=== PATIENT | female | born 1990 | race Caucasian/White ===

== ENCOUNTER 2016-10-25 16:26 | Emergency (ER) | payer MEDICAID ==
[2016-10-25 16:42] VITALS: BP 117/74
--- NOTE | 2016-10-25 17:10 | EDM.PDOC ---
ED HPI GENERAL MEDICAL PROBLEM - General Chief Complaint: Respiratory Problem Stated Complaint: COUGH AND CONGESTION Time Seen by Provider: 10/25/16 16:45 Source of Information: Reports: Patient History Limitations: Reports: No limitations - History of Present Illness INITIAL COMMENTS - FREE TEXT/NARRATIVE: The patient presents with cough, congestion, runny nose, sore throat, left ear pain. She has some tightness in her chest. She has chills and feels feverish. 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 Head Pain Score (Numeric/FACES): 6 - Related Data Allergies Allergy/AdvReac Type Severity Reaction Status Date / Time No Known Allergies Allergy Verified 10/25/16 16:42 Home Meds: Home Meds Venlafaxine [Effexor XR] 150 mg PO BEDTIME 07/11/16 [History] Albuterol [IJD: Albuterol HFA] 2 puff .XX Q6HR PRN #8 gm 10/25/16 [Rx] Amoxicillin 1,000 mg PO BID #40 capsule 10/25/16 [Rx] Codeine/Promethazine [Phenergan with Codeine] 5 - 10 ml PO Q6HR PRN #300 ml 03/05 [Rx] Past Medical History - Past Surgical History HEENT Surgical History: Reports: Oral surgery, Tonsillectomy Female Surgical History: Reports: Tubal ligation Social & Family History - Tobacco Use Smoking Status *Q: Current Every Day Smoker Years of Tobacco use: 8 Packs/Tins Daily: 0.5 - Caffeine Use Caffeine Use: Reports: None - Recreational Drug Use Recreational Drug Use: No ED ROS GENERAL - Review of Systems Review Of Systems: See Below Constitutional: Reports: fever, chills HEENT: Reports: Other (Congestion and runny nose) Respiratory: Reports: Cough Cardiovascular: Reports: Chest pain (Tightness) Endocrine: Reports: no symptoms GI/Abdominal: Reports: No symptoms : Reports: no symptoms Musculoskeletal: Reports: no symptoms Skin: Reports: no symptoms Neurological: Reports: No Symptoms ED EXAM, GENERAL - Physical Exam Exam: See Below Exam Limited By: No limitations General Appearance: alert, no apparent distress Ears: normal external exam, normal canal, other (Moderate erythema and fluid to the left TM) Nose: normal inspection Throat/Mouth: Other (Mild erythema) Head: atraumatic, normocephalic Neck: normal inspection Respiratory/Chest: no respiratory distress, wheezing (Mild wheezing when taking a deep breath) Cardiovascular: regular rate, rhythm, no edema, no murmur GI/Abdominal: Soft, Non-Tender, No Organomegaly, No Mass Rectal (Female) Exam: Normal Exam Back Exam: normal inspection Extremities: normal inspection Course - Vital Signs Last Recorded V/S: Last Vital Signs Temp 98.5 F 10/25/16 16:40 Pulse 88 10/25/16 16:40 Resp 18 10/25/16 16:40 BP 117/74 10/25/16 16:40 Pulse Ox 97 10/25/16 16:40 - Orders/Labs/Meds Orders: Active Orders 24 hr Category Date Time Status CXR [Chest 2V] [CR] Stat Exams 10/25/16 16:49 Taken - Re-Assessments/Exams Free Text/Narrative Re-Assessment/Exam: 10/25/16 17:03 Her CXR looks good. She has a left otitis media and bronchitis. I will get her on amoxicillin and albuterol. Departure - Departure Time of Disposition: 17:10 Disposition: Home, Self-Care 01 Condition: good Clinical Impression: Bronchitis Otitis media Qualifiers: Otitis media type: serous Laterality: left Chronicity: acute Recurrence: not specified as recurrent Qualified Code(s): H65.02 - Acute serous otitis media, left ear - Discharge Information Prescriptions: Albuterol [IJD: Albuterol HFA] 2 puff .XX Q6HR PRN #8 gm PRN Reason: Shortness Of Breath Codeine/Promethazine [Phenergan with Codeine] 5 - 10 ml PO Q6HR PRN #300 ml PRN Reason: Cough Amoxicillin 1,000 mg PO BID #40 capsule Referrals: Roberta Ortiz, DIRECTOR DISTRIBUTION [Primary Care Provider] - 1 Week Forms: ED Department Discharge Additional Instructions: Take the medication as prescribed. Try to stop smoking. Please return if you are worse. 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 Please call [phone]. - My Orders Last 24 Hours: My Active Orders 10/25/16 16:49 CXR [Chest 2V] [CR] Stat - Assessment/Plan Last 24 Hours: My Active Orders 10/25/16 16:49 CXR [Chest 2V] [CR] Stat
--- NOTE | 2016-10-26 11:56 | CR ---
Chest: Two views of the chest were obtained. Comparison: No previous study. Heart size and mediastinum are normal. Slight linear density is seen within the right lung base in a vertical direction believed to be incidental. Lungs otherwise are clear. Bony structures appear within normal limits. Impression: 1. Incidental finding. Nothing acute is identified on two-view chest x-ray. Diagnostic code #2
== END 2016-10-25 17:26 | disposition home or self-care (01) ==
LOC: JD.ED 16:26
DX: J40 Bronchitis, not specified as acute or chronic (principal); H65.02 Acute serous otitis media, left ear; F17.210 Nicotine dependence, cigarettes, uncomplicated; Z98.890 Other specified postprocedural states
CPT/HCPCS: 71020; 71020-26; 99283

== ENCOUNTER 2017-01-17 20:21 | Emergency (ER) | payer MEDICAID ==
--- NOTE | 2017-01-17 20:26 | EDM.PDOC ---
ED HPI GENERAL MEDICAL PROBLEM - General Chief Complaint: Gastrointestinal Problem Stated Complaint: ABDOMINAL PAIN,NAUSE, DIZZINESS Time Seen by Provider: 01/17/17 20:26 - History of Present Illness INITIAL COMMENTS - FREE TEXT/NARRATIVE: 26-year-old female presents emergency room with abdominal pain. Patient has had worsening abdominal pain over the last couple of days. This is been mostly in the lower quadrants. This associated with some nausea she's had some constipation yesterday but then this was followed up with a few watery stools. She has not had a BM today. She's had intermittent nausea no vomiting. She denies fevers or chills. Recently she was diagnosed with kidney stones but this is much different. - Related Data Allergies Allergy/AdvReac Type Severity Reaction Status Date / Time No Known Allergies Allergy Verified 01/17/17 20:31 Home Meds: Home Meds Venlafaxine [Effexor XR] 150 mg PO BEDTIME 07/11/16 [History] Cyclobenzaprine [Flexeril] 5 mg PO DAILY 01/17/17 [History] Diclofenac Sodium [Voltaren] 50 mg PO DAILY 01/17/17 [History] Hydrocodone/Acetaminophen [[place] 5-325] 1 - 2 tab PO Q6H PRN #5 tablet #5 Samples 01/18/17 [Rx] Magnesium Citrate 590 ml PO Q6H #2 solution #2 Samples 01/18/17 [Rx] Past Medical History - Past Surgical History HEENT Surgical History: Reports: Oral Surgery, Tonsillectomy Female Surgical History: Reports: Tubal Ligation Social & Family History - Tobacco Use Smoking Status *Q: Current Every Day Smoker Years of Tobacco use: 8 Packs/Tins Daily: 0.5 - Caffeine Use Caffeine Use: Reports: None - Recreational Drug Use Recreational Drug Use: No ED ROS GENERAL - Review of Systems Review Of Systems: See Below Constitutional: Denies: Fever, Chills HEENT: Reports: No Symptoms Respiratory: Reports: No Symptoms Cardiovascular: Reports: No Symptoms GI/Abdominal: Reports: Abdominal Pain, Constipation, Diarrhea, Nausea : Reports: No Symptoms ED EXAM, GI/ABD - Physical Exam Exam: See Below Exam Limited By: No Limitations General Appearance: Alert, No Apparent Distress Head: Atraumatic, Normocephalic Neck: Normal Inspection, Supple, Non-Tender, Full Range of Motion. No: Lymphadenopathy (L), Lymphadenopathy (R) Respiratory/Chest: No Respiratory Distress, Lungs Clear, Normal Breath Sounds Cardiovascular: Regular Rate, Rhythm, No Edema, No Murmur GI/Abdominal Exam: Normal Bowel Sounds, Soft, Other (She has some bilateral lower quadrant discomfort no rebound or guarding appreciated no rigidity or distention) Back Exam: Normal Inspection. No: CVA Tenderness (L), CVA Tenderness (R) Course - Vital Signs Last Recorded V/S: Last Vital Signs Temp 36.9 C 01/17/17 20:26 Pulse 98 01/17/17 20:26 Resp 18 01/17/17 20:26 BP 124/85 01/17/17 20:26 Pulse Ox 99 01/17/17 20:26 Orthostatic Blood Pressure [ 108/73 Standing] Orthostatic Blood Pressure [ 108/61 Supine] - Orders/Labs/Meds Orders: Active Orders 24 hr Category Date Time Status Abdomen 2V AP Flat Upright [CR] Stat Exams 01/17/17 23:06 Taken Chest 2V [CR] Stat Exams 01/17/17 20:43 Taken Lactated Ringers [Ringers, Lactated] 1,000 ml Med 01/17/17 21:11 Active IV ONETIME Medication Orders Lactated Ringer's (Ringers, Lactated) 1,000 mls @ 150 mls/hr IV ONETIME ONE Stop: 01/18/17 03:50 Last Admin: 01/17/17 21:24 Dose: 150 mls/hr Labs: Laboratory Tests 01/17/17 01/17/17 01/17/17 Range/Units 21:04 21:04 21:08 WBC 11.85 H (3.98-10.04) K/mm3 RBC 4.62 (3.98-5.22) M/mm3 Hgb 14.0 (11.2-15.7) gm/L Hct 39.7 (34.1-44.9) % MCV 85.9 (79.4-94.8) fl MCH 30.3 (25.6-32.2) pg MCHC 35.3 (32.2-35.5) g/dl RDW Std Deviation 37.7 (36.4-46.3) fL Plt Count 272 (182-369) K/mm3 MPV 9.4 (9.4-12.3) fl Neutrophils % (Manual) 56 (40-60) % Band Neutrophils % 0 (0-10) % Lymphocytes % (Manual) 42 H (20-40) % Atypical Lymphs % 0 % Monocytes % (Manual) 0 L (2-10) % Eosinophils % (Manual) 2 (0.7-5.8) % Basophils % (Manual) 0 L (0.1-1.2) Platelet Estimate Adequate Plt Morphology Comment Normal RBC Morph Comment Normal Sodium 139 (136-145) mEq/L Potassium 3.7 (3.5-5.1) mEq/L Chloride 105 (98-107) mEq/L Carbon Dioxide 23 (21-32) mEq/L Anion Gap 14.7 (5-15) BUN 13 (7-18) mg/dL Creatinine 1.0 (0.55-1.02) mg/dL Est Cr Clr Drug Dosing TNP Estimated GFR (MDRD) > 60 (>60) mL/min BUN/Creatinine Ratio 13.0 L (14-18) Glucose 109 H (74-106) mg/dL Calcium 9.4 (8.5-10.1) mg/dL Total Bilirubin 0.2 (0.2-1.0) mg/dL AST 21 (15-37) U/L ALT 37 (14-59) U/L Alkaline Phosphatase 87 (46-116) U/L Total Protein 7.3 (6.4-8.2) g/dl Albumin 4.0 (3.4-5.0) g/dl Globulin 3.3 gm/dL Albumin/Globulin Ratio 1.2 (1-2) Urine Color Light yellow (Yellow) Urine Appearance Cloudy H (Clear) Urine pH 7.0 (5.0-8.0) Ur Specific [place] 1.025 (1.005-1.030) Urine Protein 1+ H (Negative) Urine Glucose (UA) Negative (Negative) Urine Ketones Negative (Negative) Urine Occult Blood 3+ H (Negative) Urine Nitrite Negative (Negative) Urine Bilirubin Negative (Negative) Urine Urobilinogen 0.2 (0.2-1.0) Ur Leukocyte Esterase Trace H (Negative) Urine RBC 40-50 H (0-5) /hpf Urine WBC 5-10 H (0-5) /hpf Ur Epithelial Cells 10-20 H (0-5) /hpf Amorphous Sediment Moderate H (NOT SEEN) /hpf Urine Bacteria Moderate H (FEW) /hpf Urine Mucus Not seen (FEW) /hpf Meds: Medications Generic Name Dose Route Start Last Admin Trade Name Dwayne PRN Reason Stop Dose Admin Lactated Ringer's 1,000 mls @ 150 mls/hr 01/17/17 21:11 01/17/17 21:24 Ringers, Lactated IV 01/18/17 03:50 150 mls/hr ONETIME ONE Administration Discontinued Medications Generic Name Dose Route Start Last Admin Trade Name Dwayne PRN Reason Stop Dose Admin Hydromorphone HCl 0.5 mg 01/17/17 21:12 01/17/17 21:25 Dilaudid IVPUSH 01/17/17 21:13 0.5 mg ONETIME ONE Administration Hydromorphone HCl 0.5 mg 01/17/17 23:07 01/17/17 23:18 Dilaudid IVPUSH 01/17/17 23:08 0.5 mg ONETIME ONE Administration Ondansetron HCl 4 mg 01/17/17 21:12 01/17/17 21:26 Zofran IVPUSH 01/17/17 21:13 4 mg ONETIME ONE Administration - Re-Assessments/Exams Free Text/Narrative Re-Assessment/Exam: 01/18/17 00:28 Patient is doing better she's received fluids abdominal x-ray shows a fair amount of stool not necessarily overloaded. Chest x-ray unremarkable labs unrevealing she does have some blood in her urine about a month ago she did pass a kidney stone but this pain is much different than what she is experiencing now. The patient had a CAT scan done about a month ago at the [facility]. Kidney stone diagnosed at that time. We discussed getting a CAT scan and she would like to hold off on that and is willing to try some mag citrate. I cannot exclude a kidney stone at this point but did be somewhat unusual with her presentation. She has bilateral lower quadrant discomfort and crampy pain. Departure - Departure Time of Disposition: 00:39 Disposition: Home, Self-Care 01 Clinical Impression: Abdominal pain of unknown cause - Discharge Information Prescriptions: Magnesium Citrate 590 ml PO Q6H #2 solution #2 Samples Instructions: Abdominal Pain, Adult Referrals: Miranda Pacheco [Primary Care Provider] - Forms: ED Department Discharge Additional Instructions: Return to the emergency room with a questions problems or worsening symptoms. Return to emergency room if not better in 12 hours sooner if getting worse. Limit your diet to clear liquids for the next 12 hours then slowly advance as tolerated. Follow-up with your regular physician next week to recheck your urine for the presence of blood. You been discharged with magnesium citrate this is for constipation try this it may help. Drink 1 bottle when he gets home it goes down better if you poor it over ice, or refrigerate for a while. You been given hydrocodone 10/19/24 take one or 2 every 6 hours as needed for discomfort. Your given 5 from the emergency room stock. - My Orders Last 24 Hours: My Active Orders 01/17/17 20:43 Chest 2V [CR] Stat 01/17/17 21:11 Lactated Ringers [Ringers, Lactated] 1,000 ml IV ONETIME 01/17/17 23:06 Abdomen 2V AP Flat Upright [CR] Stat - Assessment/Plan Last 24 Hours: My Active Orders 01/17/17 20:43 Chest 2V [CR] Stat 01/17/17 21:11 Lactated Ringers [Ringers, Lactated] 1,000 ml IV ONETIME 01/17/17 23:06 Abdomen 2V AP Flat Upright [CR] Stat
[2017-01-17 20:31] VITALS: BP 124/85
[2017-01-17] MEDS ORDERED: Lactated Ringers 1,000 ML IV ONE (21:11)
[2017-01-17] MEDS ORDERED: HYDROmorphone 0.5 MG/0.5 ML Syringe IVPUSH ONE ×2 (21:12→23:07)
[2017-01-17] MEDS ORDERED: Ondansetron 4 MG/2 ML SDV IVPUSH ONE (21:12)
[2017-01-17] MEDS ORDERED: Acetaminophen/HYDROcodone 325-5 MG Tab ONE (23:58)
[2017-01-18] MEDS ORDERED: Magnesium Citrate Solution 296 ML Bottle ONE (00:53)
--- NOTE | 2017-01-18 07:11 | CR ---
Chest: Two views of the chest were obtained. Comparison: Previous chest x-ray of 10/25/16. Heart size and mediastinum are normal. Lungs are clear. Bony structures are unremarkable for the patient's age. Impression: 1. Nothing acute is identified on two-view chest x-ray. Diagnostic code #1
--- NOTE | 2017-01-18 07:15 | CR ---
Abdomen: Supine and upright views of the abdomen were obtained. Calcification identified overlying the mid left kidney believed to represent nonobstructing stone within the left renal pelvis measuring approximately 1 cm. No other abnormal calcifications are appreciated. Bowel gas pattern is normal. No free air is seen. Bony structures are unremarkable. Impression: 1. Calcification overlying the mid left kidney likely representing a nonobstructing calculus within the renal pelvis. 2. No additional abnormality is identified on two-view abdominal x-ray. Diagnostic code #3
== END 2017-01-18 00:59 | disposition home or self-care (01) ==
LOC: JD.ED 20:21
DX: R10.31 Right lower quadrant pain (principal); R10.32 Left lower quadrant pain; F17.210 Nicotine dependence, cigarettes, uncomplicated; Z98.890 Other specified postprocedural states
CPT/HCPCS: 36415; 71020; 74020; 80053; 81001; 85025; 96361; 96374; 96375; 96376; 99284; A9270; J1170; J2405; J7120

== ENCOUNTER 2017-03-25 17:50 | Emergency (ER) | payer MEDICAID ==
[2017-03-25] MEDS ORDERED: Ondansetron 4 MG/2 ML SDV IVPUSH ONE ×2 (18:17→22:03)
[2017-03-25 18:22] VITALS: BP 140/114
[2017-03-25] MEDS ORDERED: Sodium Chloride 0.9% 1,000 ML IV ONE (18:34)
[2017-03-25] MEDS ORDERED: HYDROmorphone 1 MG/ML Syringe IVPUSH ONE (19:45)
--- NOTE | 2017-03-25 20:56 | EDM.PDOC ---
ED HPI GENERAL MEDICAL PROBLEM - General Chief Complaint: Genitourinary Problem Stated Complaint: POSS PASSING KIDNEY STONE Time Seen by Provider: 03/25/17 19:35 Source of Information: Reports: Patient, Old Records (recent ER records) History Limitations: Reports: No Limitations - History of Present Illness INITIAL COMMENTS - FREE TEXT/NARRATIVE: 26-year-old female presents for evaluation and treatment of left sided flank pain. Reports pain stated about 2 months ago. She was seen in the ER on 01-17-17 for abdominal pain. Reports she followed up with her PCP and had a CT scan done on 02-01-17. She was found to have 6.9mm nonobstructing stone in the left pole of the kidney. She was sent to urology in [place] where no further intervention was done. Patient reports today the pain has significantly worsened. Reports associated nausea and lightheadedness. No vomiting or syncope. No dysuria. Has been taking zofran and a muscle relaxer with no symptom relief. Patient reports she has had a tubal ligation about 4 years ago. States she is currently on her menstrual cycle. Denies any previous abdominal surgeries. 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: - Past Surgical History HEENT Surgical History: Reports: Oral Surgery, Tonsillectomy Female Surgical History: Reports: Tubal Ligation Social & Family History - Family History Family Medical History: Noncontributory - Tobacco Use Smoking Status *Q: Current Every Day Smoker Years of Tobacco use: 10 Packs/Tins Daily: 0.5 Used Tobacco, but Quit: No Second Hand Smoke Exposure: No - Caffeine Use Caffeine Use: Reports: Coffee, Energy Drinks, Soda - Recreational Drug Use Recreational Drug Use: No ED ROS GENERAL - Review of Systems Review Of Systems: See Below Constitutional: Denies: Fever Cardiovascular: Reports: Lightheadedness GI/Abdominal: Reports: Nausea. Denies: Abdominal Pain, Vomiting : Reports: Flank Pain (left), Other (currently on menstrual cycle) Neurological: Denies: Syncope ED EXAM, RENAL/ - Physical Exam Exam: See Below Exam Limited By: No Limitations General Appearance: Alert, WD/WN, No Apparent Distress Throat/Mouth: Normal Inspection, Normal Lips, Normal Voice, No Airway Compromise Respiratory/Chest: No Respiratory Distress, Lungs Clear, Normal Breath Sounds Cardiovascular: Normal Peripheral Pulses, Regular Rate, Rhythm, No Murmur GI/Abdominal: Soft, Non-Tender Back Exam: Normal Inspection. No: CVA Tenderness (L), CVA Tenderness (R) Neurological: Alert, Oriented, Normal Cognition Psychiatric: Normal Affect, Normal Mood Skin Exam: Warm, Dry, Normal Color Course - Vital Signs Last Recorded V/S: Last Vital Signs Temp 37.1 C 03/25/17 18:18 Pulse 76 03/25/17 18:18 Resp 20 03/25/17 18:18 BP 140/114 H 03/25/17 18:18 Pulse Ox 99 03/25/17 18:18 - Orders/Labs/Meds Labs: Laboratory Tests 03/25/17 03/25/17 03/25/17 Range/Units 18:10 20:34 20:34 WBC 10.45 H (3.98-10.04) K/mm3 RBC 4.46 (3.98-5.22) M/mm3 Hgb 13.6 (11.2-15.7) gm/L Hct 39.0 (34.1-44.9) % MCV 87.4 (79.4-94.8) fl MCH 30.5 (25.6-32.2) pg MCHC 34.9 (32.2-35.5) g/dl RDW Std Deviation 38.8 (36.4-46.3) fL Plt Count 287 (182-369) K/mm3 MPV 9.3 L (9.4-12.3) fl Neut % (Auto) 75.4 H (34.0-71.1) % Lymph % (Auto) 18.4 L (19.3-51.7) % [place] % (Auto) 4.8 (4.7-12.5) % Eos % (Auto) 1.0 (0.7-5.8) Baso % (Auto) 0.2 (0.1-1.2) % Neut # (Auto) 7.89 H (1.56-6.13) K/mm3 Lymph # (Auto) 1.92 (1.18-3.74) K/mm3 [place] # (Auto) 0.50 H (0.24-0.36) K/mm3 Eos # (Auto) 0.10 (0.04-0.36) K/mm3 Baso # (Auto) 0.02 (0.01-0.08) K/mm3 Sodium 142 (136-145) mEq/L Potassium 3.7 (3.5-5.1) mEq/L Chloride 108 H (98-107) mEq/L Carbon Dioxide 22 (21-32) mEq/L Anion Gap 15.7 H (5-15) BUN 12 (7-18) mg/dL Creatinine 1.1 H (0.55-1.02) mg/dL Est Cr Clr Drug Dosing 64.67 mL/min Estimated GFR (MDRD) > 60 (>60) mL/min BUN/Creatinine Ratio 10.9 L (14-18) Glucose 131 H (74-106) mg/dL Calcium 9.3 (8.5-10.1) mg/dL Total Bilirubin 0.3 (0.2-1.0) mg/dL AST 18 (15-37) U/L ALT 34 (14-59) U/L Alkaline Phosphatase 85 (46-116) U/L C-Reactive Protein 0.7 (<1.0) mg/dL Total Protein 7.4 (6.4-8.2) g/dl Albumin 4.0 (3.4-5.0) g/dl Globulin 3.4 gm/dL Albumin/Globulin Ratio 1.2 (1-2) Urine Color Light pink (Yellow) Urine Appearance Cloudy H (Clear) Urine pH 7.5 (5.0-8.0) Ur Specific [place] 1.025 (1.005-1.030) Urine Protein 3+ H (Negative) Urine Glucose (UA) Negative (Negative) Urine Ketones Trace H (Negative) Urine Occult Blood 3+ H (Negative) Urine Nitrite Negative (Negative) Urine Bilirubin Negative (Negative) Urine Urobilinogen 1.0 (0.2-1.0) Ur Leukocyte Esterase Negative (Negative) Urine RBC >100 H (0-5) /hpf Urine WBC 0-5 (0-5) /hpf Ur Epithelial Cells 5-10 H (0-5) /hpf Urine Bacteria Moderate H (FEW) /hpf Urine Mucus Few (FEW) /hpf Meds: Medications Discontinued Medications Generic Name Dose Route Start Last Admin Trade Name Dwayne PRN Reason Stop Dose Admin Hydromorphone HCl 1 mg 03/25/17 19:45 03/25/17 20:06 Dilaudid IVPUSH 03/25/17 19:46 1 mg ONETIME ONE Administration Sodium Chloride 1,000 mls @ 150 mls/hr 03/25/17 18:34 03/25/17 19:00 Normal Saline IV 03/26/17 01:13 150 mls/hr ONETIME ONE Administration Ketorolac Tromethamine 30 mg 03/25/17 22:03 03/25/17 22:12 Toradol IVPUSH 03/25/17 22:04 30 mg ONETIME ONE Administration Ondansetron HCl 4 mg 03/25/17 18:17 03/25/17 18:26 Zofran IVPUSH 03/25/17 18:18 4 mg ONETIME ONE Administration Ondansetron HCl 4 mg 03/25/17 22:03 03/25/17 22:10 Zofran IVPUSH 03/25/17 22:04 4 mg ONETIME ONE Administration - Radiology Interpretation Free Text/Narrative:: KUB shows a kidney stone in the left kidney, no apparent movement at this time. - Re-Assessments/Exams Free Text/Narrative Re-Assessment/Exam: 03/25/17 19:50 Unfortunately the patient is on her menstrual cycle so blood on UA will likely be present. Given she recently had a CT we will instead obtain a KUB to see if the stone is moving at this time. 03/25/17 22:03 KUB shows a stone in the left kidney. Does not appear to be moving at this time. 03/25/17 22:04 I reviewed the absent x-ray with the patient. She is reporting worsening pain and nausea. Ordered Toradol as the combination with Dilaudid can often help with renal colic. I will also give her some more Zofran for nause. Will discharge home at this time. Discharge instructions as documented. 03/25/17 22:25 Patient's sister reports that she has had allergies to hydrocodone and oxycodone the past. We'll prescribe her tramadol for discomfort and Zofran for nausea. Departure - Departure Time of Disposition: 22:22 Disposition: Home, Self-Care 01 Condition: Fair Clinical Impression: Abdominal pain of unknown cause - Discharge Information Instructions: Abdominal Pain, Adult, [id number] Referrals: Miranda Pacheco [Primary Care Provider] - Forms: ED Department Discharge Additional Instructions: Prescription for tramadol 1 tablet every 4-6 hours as needed for pain #30 Prescription for Zofran 1 tablet every 8 hours as needed for nausea #5 given through [facility]eds. Follow-up with your primary care provider for recheck of your symptoms this week. [id number] Tylenol or Motrin as needed for pain relief. For pain severe pain not relieved by Tylenol or Motrin, recommend tramadol 1 tab every 4-[address] machinery within 12 hours of taking tramadol. Tramadol can be habit-forming, I recommend you take as few these as needed to control your pain. Zofran 1 tab sublingual every 8 hours needed for nausea. Please return to the ER if your symptoms change or worsen.
[2017-03-25] MEDS ORDERED: Ketorolac 30 MG/ML SDV IVPUSH ONE (22:03)
--- NOTE | 2017-03-27 10:25 | CR ---
Abdomen: Supine view of the abdomen was obtained. Comparison: Previous abdominal x-ray of 01/17/17. Findings: Nonobstructing calculus is again seen within the mid to lower left kidney. This nonobstructing calculus is stable from prior study. No other abnormal calcifications are seen. Bowel gas pattern appears within normal limits. Bony structures appear within normal limits. Impression: 1. Stable nonobstructing stone within the mid to lower left kidney. 2. Supine abdominal x-ray is otherwise unremarkable. Diagnostic code #2
== END 2017-03-25 22:46 | disposition home or self-care (01) ==
LOC: JD.ED 17:50
DX: R10.9 Unspecified abdominal pain (principal); F17.210 Nicotine dependence, cigarettes, uncomplicated; Z79.899 Other long term (current) drug therapy
CPT/HCPCS: 36415; 74000; 80053; 81001; 85025; 86140; 87086; 96361; 96374; 96375; 96376; 99284; J1170; J1885; J2405; J7040

== ENCOUNTER 2017-06-28 06:30 | Emergency (ER) | payer MEDICAID ==
--- NOTE | 2017-06-28 07:18 | EDM.PDOC ---
ED HPI GENERAL MEDICAL PROBLEM - General Chief Complaint: Cardiovascular Problem Stated Complaint: CHEST PAIN/SOB Time Seen by Provider: 06/28/17 06:58 Source of Information: Reports: Patient, RN Notes Reviewed - History of Present Illness INITIAL COMMENTS - FREE TEXT/NARRATIVE: 26-year-old female comes in with palpitations, shortness of breath. This started about 2 hours ago now somewhat better. She states that she does have history of mitral prolapse. Been feeling more palpitations yesterday and then again early this morning, through the night. This became more severe as stated about 2 hours ago. That is when she became short of breath. Not feel that she was hyperventilating but she did get somewhat numb and tingly with her hands and feet. So very nonspecific dizziness. She's not been ill with cough congestion sore throat fever or chills. Now does feel somewhat better. She is no longer feeling the palpitations. She still does feel somewhat short of breath. 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: Musculoskeletal History: Reports: Other (See Below) Other Musculoskeletal History: Sciatica Psychiatric History: Reports: Anxiety, Depression, Eating Disorders - Past Surgical History HEENT Surgical History: Reports: Oral Surgery, Tonsillectomy Other HEENT Surgeries/Procedures: [place] teeth extraction Female Surgical History: Reports: Tubal Ligation Social & Family History - Family History Family Medical History: Noncontributory - Tobacco Use Smoking Status *Q: Current Every Day Smoker Years of Tobacco use: 10 Packs/Tins Daily: 0.5 Used Tobacco, but Quit: No Second Hand Smoke Exposure: No - Caffeine Use Caffeine Use: Reports: Coffee, Energy Drinks, Soda - Recreational Drug Use Recreational Drug Use: Yes Recreational Drug Type: Reports: Cocaine, Methamphetamine Recreational Drug Use Frequency: Not Used In Over 6 Months ED ROS GENERAL - Review of Systems Review Of Systems: See Below Constitutional: Denies: Fever, Chills, Diaphoresis HEENT: Denies: Rhinitis, Sinus Problem, Throat Pain, Vertigo Respiratory: Reports: Shortness of Breath. Denies: Wheezing, Pleuritic Chest Pain, Cough Cardiovascular: Reports: Lightheadedness, Palpitations. Denies: Chest Pain, Syncope GI/Abdominal: Denies: Abdominal Pain, Diarrhea, Nausea, Vomiting Musculoskeletal: Reports: No Symptoms Skin: Reports: No Symptoms Neurological: Reports: Numbness (Hands and feet) ED EXAM, GENERAL - Physical Exam Exam: See Below General Appearance: Alert, No Apparent Distress Eye Exam: Bilateral Eye: PERRL Throat/Mouth: Normal Inspection, Normal Oropharynx Head: Atraumatic. No: Facial Swelling Neck: Supple, Full Range of Motion Respiratory/Chest: No Respiratory Distress, Lungs Clear, Normal Breath Sounds Cardiovascular: Regular Rate, Rhythm GI/Abdominal: Soft, Non-Tender Extremities: Normal Inspection, Normal Range of Motion Neurological: Alert, Oriented, No Motor/Sensory Deficits Skin Exam: Warm, Dry, Normal Color EKG INTERPRETATION EKG Date: 06/28/17 Rhythm: NSR [place]: Normal P-Wave: Present QRS: Normal ST-T: Normal Course - Vital Signs Last Recorded V/S: Last Vital Signs Temp 96.4 F 06/28/17 06:37 Pulse 82 06/28/17 09:40 Resp 18 06/28/17 09:40 BP 120/61 06/28/17 09:40 Pulse Ox 100 06/28/17 09:40 - Orders/Labs/Meds Orders: Active Orders 24 hr Category Date Time Status EKG 12 Lead [EKG Documentation Completion] [RC] STAT Care 06/28/17 07:12 Active Labs: Laboratory Tests 06/28/17 06/28/17 Range/Units 06:41 06:41 WBC 11.24 H (3.98-10.04) K/mm3 RBC 4.76 (3.98-5.22) M/mm3 Hgb 14.5 (11.2-15.7) gm/L Hct 41.6 (34.1-44.9) % MCV 87.4 (79.4-94.8) fl MCH 30.5 (25.6-32.2) pg MCHC 34.9 (32.2-35.5) g/dl RDW Std Deviation 39.6 (36.4-46.3) fL Plt Count 291 (182-369) K/mm3 MPV 9.5 (9.4-12.3) fl Neut % (Auto) 60.5 (34.0-71.1) % Lymph % (Auto) 28.6 (19.3-51.7) % Heard % (Auto) 7.2 (4.7-12.5) % Eos % (Auto) 3.0 (0.7-5.8) Baso % (Auto) 0.5 (0.1-1.2) % Neut # (Auto) 6.79 H (1.56-6.13) K/mm3 Lymph # (Auto) 3.22 (1.18-3.74) K/mm3 Heard # (Auto) 0.81 H (0.24-0.36) K/mm3 Eos # (Auto) 0.34 (0.04-0.36) K/mm3 Baso # (Auto) 0.06 (0.01-0.08) K/mm3 Sodium 142 (136-145) mEq/L Potassium 4.1 (3.5-5.1) mEq/L Chloride 108 H (98-107) mEq/L Carbon Dioxide 22 (21-32) mEq/L Anion Gap 16.1 H (5-15) BUN 13 (7-18) mg/dL Creatinine 0.8 (0.55-1.02) mg/dL Est Cr Clr Drug Dosing 88.93 mL/min Estimated GFR (MDRD) > 60 (>60) mL/min BUN/Creatinine Ratio 16.3 (14-18) Glucose 117 H (74-106) mg/dL Calcium 9.0 (8.5-10.1) mg/dL Total Bilirubin 0.3 (0.2-1.0) mg/dL AST 15 (15-37) U/L ALT 22 (14-59) U/L Alkaline Phosphatase 83 (46-116) U/L Total Protein 7.2 (6.4-8.2) g/dl Albumin 3.8 (3.4-5.0) g/dl Globulin 3.4 gm/dL Albumin/Globulin Ratio 1.1 (1-2) - Re-Assessments/Exams Free Text/Narrative Re-Assessment/Exam: 06/28/17 09:31 Patient has been resting comfortably, labs are relatively okay, does show very mild dehydration. I suspect she was having some PVCs or PACs at home when this all started. Rate and rhythm has been completely normal here in the ED running around 80, no ectopy that I have seen or been made aware of. Chest x-ray looks good. Sats have been running good with no respiratory distress while here in the ED. Discharge instructions as documented Departure - Departure Time of Disposition: 09:33 Disposition: Home, Self-Care 01 Condition: Fair Clinical Impression: Palpitations Dyspnea Qualifiers: Dyspnea type: dyspnea on exertion Qualified Code(s): R06.09 - Other forms of dyspnea Instructions: Palpitations, [id number] Referrals: Miranda Pacheco [Primary Care Provider] - Forms: ED Department Discharge Additional Instructions: Rest, drink plenty of water to activity as tolerated, restart the labetalol if having further difficulty with palpitations, follow-up with your regular medical provider if symptoms not resolving as expected, return to ED if symptoms worsening in any way. - My Orders Last 24 Hours: My Active Orders 06/28/17 07:12 EKG 12 Lead [EKG Documentation Completion] [RC] STAT - Assessment/Plan Last 24 Hours: My Active Orders 06/28/17 07:12 EKG 12 Lead [EKG Documentation Completion] [RC] STAT
--- NOTE | 2017-06-28 09:13 | CR ---
Chest: Frontal view of the chest was obtained. Comparison: Prior chest x-ray of 01/17/17. Heart size and mediastinum are normal. Lungs are clear. Bony structures are grossly intact. Impression: 1. Nothing acute is identified on two-view chest x-ray. Diagnostic code #1
[2017-06-28 10:39] VITALS: BP 120/61
== END 2017-06-28 09:40 | disposition home or self-care (01) ==
LOC: JD.ED 06:30
DX: R00.2 Palpitations (principal); R06.09 Other forms of dyspnea; F17.210 Nicotine dependence, cigarettes, uncomplicated; Z79.899 Other long term (current) drug therapy
CPT/HCPCS: 36415; 71045; 71045-26; 80053; 85025; 93005; 93010; 99283-25; 99285-25

== ENCOUNTER 2017-08-13 15:54 | Emergency (ER) | payer MEDICAID ==
[2017-08-13 16:20] VITALS: BP 116/87
--- NOTE | 2017-08-13 17:17 | EDM.PDOC ---
ED HPI GENERAL MEDICAL PROBLEM - General Chief Complaint: Lower Extremity Injury/Pain Stated Complaint: FELL DOWN STAIRS AND INJURED L HIP/LEG Time Seen by Provider: 08/13/17 17:04 Source of Information: Reports: Patient History Limitations: Reports: No Limitations - History of Present Illness INITIAL COMMENTS - FREE TEXT/NARRATIVE: The patient states that she is moving, and was carrying some boxes down stairs, when she slipped and fell down about 5 stairs, around 14:45 this afternoon. She complains of generalized left sided body pain. She is not concerned that anything is broken. The patient is requesting a note for work. The patient's PCP is Dr. Pacheco. 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: Musculoskeletal History: Reports: Other (See Below) (Sciatica) Psychiatric History: Reports: Anxiety, Depression, Eating Disorders (Anorexia/ bulimia) Endocrine/Metabolic History: Reports: Obesity/BMI 30+ - Past Surgical History HEENT Surgical History: Reports: Oral Surgery ([place] teeth extraction), Tonsillectomy Female Surgical History: Reports: Tubal Ligation (2012), Other (See Below) ( Right kidney surgery) Social & Family History - Family History Family Medical History: Noncontributory - Tobacco Use Smoking Status *Q: Current Every Day Smoker Years of Tobacco use: 10 Packs/Tins Daily: 0.5 Packs/Tins Daily Comment: Down from 1 ppd - Caffeine Use Caffeine Use: Reports: Coffee, Tea - Alcohol Use Alcohol Use History: Yes Alcohol Use Frequency: Socially - Recreational Drug Use Recreational Drug Use: Yes Drug Use in Last 12 Months: Yes Recreational Drug Type: Reports: Cocaine, Methamphetamine Recreational Drug Use Frequency: Not Used In Over 6 Months - Living Situation & Occupation Living situation: Reports: (), with Family (2 kids) Occupation: Employed ([employer]) Review of Systems - Review of Systems Review Of Systems: ROS reveals no pertinent complaints other than HPI. ED EXAM, GENERAL - Physical Exam Exam: See Below Exam Limited By: No Limitations General Appearance: Alert, WD/WN, No Apparent Distress Eye Exam: Bilateral Eye: Normal Inspection Ears: Normal External Exam, Hearing Grossly Normal Nose: Normal Inspection, No Blood Throat/Mouth: Normal Inspection, Normal Lips, Normal Voice, No Airway Compromise Head: Atraumatic, Normocephalic Neck: Normal Inspection, Full Range of Motion Respiratory/Chest: No Respiratory Distress, Lungs Clear, Normal Breath Sounds, No Accessory Muscle Use Cardiovascular: Normal Peripheral Pulses, Regular Rate, Rhythm, No Gallop, No JVD, No Murmur, No Rub Peripheral Pulses: 4+: Radial (L), Radial (R) GI/Abdominal: Normal Bowel Sounds, Soft, Non-Tender, No Organomegaly, No Distention, No Abnormal Bruit, No Mass, Other (Obese) (Female) Exam: Deferred Rectal (Female) Exam: Deferred Back Exam: Normal Inspection, Full Range of Motion, NT Extremities: Normal Inspection (No visible abnormality, such as swelling, erythema, ecchymosis, or abrasion), Normal Range of Motion, No Pedal Edema, Normal Capillary Refill Neurological: Alert, Oriented, Normal Cognition, No Motor/Sensory Deficits Psychiatric: Normal Affect Skin Exam: Warm, Dry, Intact, Normal Color, No Rash Course - Vital Signs Last Recorded V/S: Last Vital Signs Temp 36.8 C 08/13/17 16:19 Pulse 66 08/13/17 16:19 Resp 20 08/13/17 16:19 BP 116/87 08/13/17 16:19 Pulse Ox 98 08/13/17 16:19 - Re-Assessments/Exams Free Text/Narrative Re-Assessment/Exam: 08/13/17 17:06 3-view radiographs of the left shoulder appear to be grossly normal. No bony injuries, such as fracture or dislocation, is identified. Formal read per the Radiologist pending. 2-view radiographs of the left hip appear to be grossly normal. No bony injuries , such as fracture or dislocation, is identified. Formal read per the Radiologist pending. 08/13/17 17:29 X-ray results discussed with the patient. No physical injury found. The patient may return to work. She requests a note. The patient is already prescribed diclofenac, tramadol, and [place] for joint pain. I'm recommending that she take the diclofenac as needed, and stay active. Departure - Departure Time of Disposition: 17:31 Disposition: Home, Self-Care 01 Condition: Good Clinical Impression: Fall at home - Discharge Information Instructions: Fall Prevention in the Home, [id number] Referrals: Miranda Pacheco [Primary Care Provider] - Forms: ED Department Discharge, ED Return to Work/School Form Additional Instructions: You were seen in the emergency room after slipping and falling on some stairs at home. Workup in the ER included x-rays of your left shoulder and left hip, which were normal. No broken bones or dislocations seen. We recommend that you continue to take your diclofenac as needed for discomfort , and remain active. Follow-up with your PCP, Dr. Pacheco, as needed. If any other problems, please do not hesitate to return to the ER.
--- NOTE | 2017-08-14 09:39 | CR ---
Left shoulder: Three views of the left shoulder were obtained. Comparison: No prior shoulder study. Acromioclavicular and glenohumeral joints appear within normal limits. No fracture, dislocation or other bony abnormality is identified. Impression: 1. No abnormality is identified on three-view left shoulder exam. Diagnostic code #1
--- NOTE | 2017-08-14 09:39 | CR ---
Left hip: AP and frog-leg lateral views of the left hip were obtained. Comparison: Previous pelvis and left hip exam of 06/13/17. Joint space within the left hip is preserved. No fracture, dislocation or other bony abnormality is identified. Impression: 1. No abnormality is seen on two-view left hip exam. Diagnostic code #1
== END 2017-08-13 17:44 | disposition home or self-care (01) ==
LOC: JD.ED 15:54
DX: M25.552 Pain in left hip (principal); F17.210 Nicotine dependence, cigarettes, uncomplicated; F32.9 Major depressive disorder, single episode, unspecified; W10.8XXA Fall (on) (from) other stairs and steps, initial encounter; Y92.009 Unspecified place in unspecified non-institutional (private) residence as the place of occurrence of the external cause; Z79.899 Other long term (current) drug therapy
CPT/HCPCS: 73030-26-LT; 73030-LT; 73502-26-LT; 73502-LT; 99283; 99284

== ENCOUNTER 2017-09-15 19:59 | Emergency (ER) | payer MEDICAID ==
[2017-09-15 20:08] VITALS: BP 128/68
[2017-09-15] MEDS ORDERED: Sodium Chloride 0.9% 10 ML Syringe FLUSH PRN ×2 (20:21→23:34)
[2017-09-15] MEDS ORDERED: Sodium Chloride 0.9% 1,000 ML IV STA (20:21)
[2017-09-15] MEDS ORDERED: Ondansetron 4 MG/2 ML SDV IVPUSH ONE (20:21)
[2017-09-15] MEDS ORDERED: HYDROmorphone 0.5 MG/0.5 ML SYRINGE IVPUSH ONE ×2 (20:22→21:29)
--- NOTE | 2017-09-15 21:45 | EDM.PDOC ---
ED HPI GENERAL MEDICAL PROBLEM - General Chief Complaint: Abdominal Pain Stated Complaint: VAGINAL PAIN VOMITING Time Seen by Provider: 09/15/17 20:12 Source of Information: Reports: Patient History Limitations: Reports: No Limitations - History of Present Illness INITIAL COMMENTS - FREE TEXT/NARRATIVE: The patient presents with left lower abdominal pain and pelvic pain. She is currently on her period and she said the bleeding is different. She has a history of ovarian cysts. She has no fever, chills, cough, nausea, vomiting or dysuria. She still has her gallbladder and appendix. She had a tubal ligation so she does not think she is . She has no other medical problems. Onset: Gradual Duration: Hour(s): Location: Reports: Abdomen, Pelvis Quality: Reports: Sharp Severity: Severe Improves with: Reports: None Worsens with: Reports: None Associated Symptoms: Reports: No Other Symptoms Left Abdominal Pain Score (Numeric/FACES): 8 - Related Data Allergies Allergy/AdvReac Type Severity Reaction Status Date / Time No Known Allergies Allergy Verified 09/15/17 20:08 Home Meds: Home Meds Venlafaxine [Effexor XR] 225 mg PO DAILY 07/11/16 [History] Past Medical History HEENT History: Reports: Impaired Vision Other HEENT History: Wears glasses Cardiovascular History: Reports: Other (See Below) Other Cardiovascular History: Mitral valve prolapse Genitourinary History: Reports: Renal Calculus [employer]ARY History: Reports: Musculoskeletal History: Reports: Other (See Below) Other Musculoskeletal History: Sciatica Psychiatric History: Reports: Anxiety, Depression, Eating Disorders 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 Endocrine/Metabolic History: Reports: Obesity/BMI 30+ - Past Surgical History HEENT Surgical History: Reports: Oral Surgery, Tonsillectomy Female Surgical History: Reports: Tubal Ligation, Other (See Below) Social & Family History - Family History Family Medical History: Noncontributory - Tobacco Use Smoking Status *Q: Current Every Day Smoker Years of Tobacco use: 12 Packs/Tins Daily: 1 Used Tobacco, but Quit: No Second Hand Smoke Exposure: No - Caffeine Use Caffeine Use: Reports: Coffee, Tea - Recreational Drug Use Recreational Drug Use: No Drug Use in Last 12 Months: Yes Recreational Drug Type: Reports: Cocaine, Methamphetamine Recreational Drug Use Frequency: Not Used In Over 6 Months - Living Situation & Occupation Living situation: Reports: (), with Family (2 kids) Occupation: Employed ([employer]) ED ROS GENERAL - Review of Systems Review Of Systems: See Below Constitutional: Reports: No Symptoms HEENT: Reports: No Symptoms Respiratory: Reports: No Symptoms Cardiovascular: Reports: No Symptoms Endocrine: Reports: No Symptoms GI/Abdominal: Reports: Abdominal Pain. Denies: Nausea, Vomiting : Reports: Other (Pelvic pain) ED EXAM, GI/ABD - Physical Exam Exam: See Below Exam Limited By: No Limitations General Appearance: Alert, Moderate Distress Ears: Normal External Exam Nose: Normal Inspection Head: Atraumatic, Normocephalic Neck: Normal Inspection Respiratory/Chest: No Respiratory Distress, Lungs Clear, Normal Breath Sounds Cardiovascular: Regular Rate, Rhythm, No Edema, No Murmur GI/Abdominal Exam: Soft, No Organomegaly, No Mass, Tender (Moderate to the lower abdomen and more on the left side) Back Exam: Normal Inspection Extremities: Normal Inspection Course - Vital Signs Last Recorded V/S: Last Vital Signs Temp 98.9 F 09/15/17 20:04 Pulse 68 09/15/17 20:04 Resp 17 09/15/17 20:04 BP 128/68 09/15/17 20:04 Pulse Ox 93 L 09/15/17 20:04 - Orders/Labs/Meds Orders: Active Orders 24 hr Category Date Time Status Peripheral IV Care [RC] . DIRECTED Care 09/15/17 20:21 Active Abdomen Pelvis w Cont [CT] Stat Exams 09/15/17 22:11 Taken Sodium Chloride 0.9% [Saline Flush] Med 09/15/17 20:21 Active 10 ml FLUSH ASDIRECTED PRN Sodium Chloride 0.9% [Saline Flush] Med 09/15/17 23:34 Active 10 ml FLUSH ONETIME PRN ED Antiemetic Medication Reflex [OM.PC] Stat Oth 09/15/17 20:21 Ordered Peripheral IV Insertion Adult [OM.PC] Stat Oth 09/15/17 20:21 Ordered Medication Orders Sodium Chloride (Saline Flush) 10 ml FLUSH ASDIRECTED PRN PRN Reason: Keep Vein Open Last Admin: 09/15/17 20:30 Dose: 10 ml Sodium Chloride (Saline Flush) 10 ml FLUSH ONETIME PRN PRN Reason: IV FLUSH Last Admin: 09/15/17 23:51 Dose: 10 ml Labs: Laboratory Tests 09/15/17 09/15/17 09/15/17 Range/Units 20:15 20:35 20:35 WBC 13.17 H (3.98-10.04) K/mm3 RBC 4.74 (3.98-5.22) M/mm3 Hgb 14.4 (11.2-15.7) gm/L Hct 41.1 (34.1-44.9) % MCV 86.7 (79.4-94.8) fl MCH 30.4 (25.6-32.2) pg MCHC 35.0 (32.2-35.5) g/dl RDW Std Deviation 38.7 (36.4-46.3) fL Plt Count 267 (182-369) K/mm3 MPV 9.3 L (9.4-12.3) fl Neut % (Auto) 81.8 H (34.0-71.1) % Lymph % (Auto) 12.0 L (19.3-51.7) % [place] % (Auto) 5.1 (4.7-12.5) % Eos % (Auto) 0.7 (0.7-5.8) Baso % (Auto) 0.2 (0.1-1.2) % Neut # (Auto) 10.78 H (1.56-6.13) K/mm3 Lymph # (Auto) 1.58 (1.18-3.74) K/mm3 [place] # (Auto) 0.67 H (0.24-0.36) K/mm3 Eos # (Auto) 0.09 (0.04-0.36) K/mm3 Baso # (Auto) 0.03 (0.01-0.08) K/mm3 Sodium 145 (136-145) mEq/L Potassium 3.9 (3.5-5.1) mEq/L Chloride 108 H (98-107) mEq/L Carbon Dioxide 23 (21-32) mEq/L Anion Gap 17.9 H (5-15) BUN 14 (7-18) mg/dL Creatinine 1.1 H (0.55-1.02) mg/dL Est Cr Clr Drug Dosing 64.67 mL/min Estimated GFR (MDRD) > 60 (>60) mL/min BUN/Creatinine Ratio 12.7 L (14-18) Glucose 112 H (74-106) mg/dL Calcium 9.8 (8.5-10.1) mg/dL Total Bilirubin 0.4 (0.2-1.0) mg/dL AST 19 (15-37) U/L ALT 24 (14-59) U/L Alkaline Phosphatase 84 (46-116) U/L Total Protein 7.4 (6.4-8.2) g/dl Albumin 4.4 (3.4-5.0) g/dl Globulin 3.0 gm/dL Albumin/Globulin Ratio 1.5 (1-2) Lipase 120 (73-393) U/L HCG, Qual (NEGATIVE) Urine Color Fernanda H (Yellow) Urine Appearance Cloudy H (Clear) Urine pH 5.5 (5.0-8.0) Ur Specific [place] > or = 1.030 (1.005-1.030) Urine Protein 3+ H (Negative) Urine Glucose (UA) Negative (Negative) Urine Ketones 2+ H (Negative) Urine Occult Blood 3+ H (Negative) Urine Nitrite Negative (Negative) Urine Bilirubin 2+ H (Negative) Urine Urobilinogen 0.2 (0.2-1.0) Ur Leukocyte Esterase Negative (Negative) Urine RBC >100 H (0-5) /hpf Urine WBC 5-10 H (0-5) /hpf Ur Epithelial Cells 10-20 H (0-5) /hpf Urine Bacteria Moderate H (FEW) /hpf Urine Mucus Few (FEW) /hpf 09/15/18 Range/Units 20:35 WBC (3.98-10.04) K/mm3 RBC (3.98-5.22) M/mm3 Hgb (11.2-15.7) gm/L Hct (34.1-44.9) % MCV (79.4-94.8) fl MCH (25.6-32.2) pg MCHC (32.2-35.5) g/dl RDW Std Deviation (36.4-46.3) fL Plt Count (182-369) K/mm3 MPV (9.4-12.3) fl Neut % (Auto) (34.0-71.1) % Lymph % (Auto) (19.3-51.7) % [place] % (Auto) (4.7-12.5) % Eos % (Auto) (0.7-5.8) Baso % (Auto) (0.1-1.2) % Neut # (Auto) (1.56-6.13) K/mm3 Lymph # (Auto) (1.18-3.74) K/mm3 [place] # (Auto) (0.24-0.36) K/mm3 Eos # (Auto) (0.04-0.36) K/mm3 Baso # (Auto) (0.01-0.08) K/mm3 Sodium (136-145) mEq/L Potassium (3.5-5.1) mEq/L Chloride (98-107) mEq/L Carbon Dioxide (21-32) mEq/L Anion Gap (5-15) BUN (7-18) mg/dL Creatinine (0.55-1.02) mg/dL Est Cr Clr Drug Dosing mL/min Estimated GFR (MDRD) (>60) mL/min BUN/Creatinine Ratio (14-18) Glucose (74-106) mg/dL Calcium (8.5-10.1) mg/dL Total Bilirubin (0.2-1.0) mg/dL AST (15-37) U/L ALT (14-59) U/L Alkaline Phosphatase (46-116) U/L Total Protein (6.4-8.2) g/dl Albumin (3.4-5.0) g/dl Globulin gm/dL Albumin/Globulin Ratio (1-2) Lipase (73-393) U/L HCG, Qual Negative (NEGATIVE) Urine Color (Yellow) Urine Appearance (Clear) Urine pH (5.0-8.0) Ur Specific [place] (1.005-1.030) Urine Protein (Negative) Urine Glucose (UA) (Negative) Urine Ketones (Negative) Urine Occult Blood (Negative) Urine Nitrite (Negative) Urine Bilirubin (Negative) Urine Urobilinogen (0.2-1.0) Ur Leukocyte Esterase (Negative) Urine RBC (0-5) /hpf Urine WBC (0-5) /hpf Ur Epithelial Cells (0-5) /hpf Urine Bacteria (FEW) /hpf Urine Mucus (FEW) /hpf Meds: Medications Generic Name Dose Route Start Last Admin Trade Name Freq PRN Reason Stop Dose Admin Sodium Chloride 10 ml 09/15/17 20:21 09/15/17 20:30 Saline Flush FLUSH 10 ml ASDIRECTED PRN Administration Keep Vein Open Sodium Chloride 10 ml 09/15/17 23:34 09/15/17 23:51 Saline Flush FLUSH 10 ml ONETIME PRN Administration IV FLUSH Discontinued Medications Generic Name Dose Route Start Last Admin Trade Name Dwayne PRN Reason Stop Dose Admin Diatrizoate Meglum/Diatrizoate Sod 90 ml 09/15/17 23:34 09/15/17 23:50 Gastrografin 37% PO 09/15/17 23:35 90 ml ONETIME ONE Administration Hydromorphone HCl 0.5 mg 09/15/17 20:22 09/15/17 20:32 Dilaudid IVPUSH 09/15/17 20:23 0.5 mg ONETIME ONE Administration Hydromorphone HCl 0.5 mg 09/15/17 21:29 09/15/17 21:32 Dilaudid IVPUSH 09/15/17 21:30 0.5 mg ONETIME ONE Administration Sodium Chloride 1,000 mls @ 1,000 mls/hr 09/15/17 20:21 09/15/17 20:31 Normal Saline IV 09/15/17 21:20 1,000 mls/hr .BOLUS STA Administration Iopamidol 125 ml 09/15/17 23:34 09/15/17 23:51 Isovue-300 (61%) IVPUSH 09/15/17 23:35 125 ml ONETIME ONE Administration Metoclopramide HCl 10 mg 09/15/17 22:17 09/15/17 22:21 Reglan IVPUSH 09/15/17 22:18 10 mg ONETIME ONE Administration Ondansetron HCl 4 mg 09/15/17 20:21 09/15/17 20:30 Zofran IVPUSH 09/15/17 20:22 4 mg ONETIME ONE Administration - Re-Assessments/Exams Free Text/Narrative Re-Assessment/Exam: 09/15/17 21:44 I ordered an IV NS 1L bolus, dilaudid 0.5mg IV, zofran 4mg IV, labs, UA and a transvaginal US. 09/15/17 23:20 His WBC is elevated at 13.17. Her anion gap is elevated at 17.9. Her creatinine is elevated at 1.1. Her glucose is elevated at 112. Her lipase is normal. Her HCG is negative. Her UA shows blood but no UTI. She is currently having her period. 09/16/17 01:11 Her pelvic US shows no abnormality is identified on pelvic US exam. She is still having pain and her WBC is elevated so I ordered a CT of her abdomen and pelvis with IV and oral contrast. The CT shows left renal pelvis stone without evidence of urinary obstruction. Stone has migrated from the left lower pole renal collecting system since the comparison examination. Small right ovarian cyst, size within range of dominant follicle. I had a patient with cardiac arrest come in to the ER and I did not get a chance to go in and update the patient. When I finally did she left with her boyfriend. There was no one in the room. Departure - Departure Time of Disposition: 01:20 Disposition: Eloped 07 Condition: Good Clinical Impression: Pelvic pain, Menstrual cycle problem Abdominal pain Qualifiers: Abdominal location: left lower quadrant Qualified Code(s): R10.32 - Left lower quadrant pain - Discharge Information Referrals: Miranda Pacheco [Primary Care Provider] - Forms: ED Department Discharge Additional Instructions: Drink plenty of fluids. Take motrin, aleve or tylenol for pain. Please return if you are worse. Follow up with your doctor next week. - My Orders Last 24 Hours: My Active Orders 09/15/17 20:21 Peripheral IV Care [RC] . DIRECTED Sodium Chloride 0.9% [Saline Flush] 10 ml FLUSH ASDIRECTED PRN ED Antiemetic Medication Reflex [OM.PC] Stat Peripheral IV Insertion Adult [OM.PC] Stat 09/15/17 22:11 Abdomen Pelvis w Cont [CT] Stat 09/15/17 23:34 Sodium Chloride 0.9% [Saline Flush] 10 ml FLUSH ONETIME PRN - Assessment/Plan Last 24 Hours: My Active Orders 09/15/17 20:21 Peripheral IV Care [RC] . DIRECTED Sodium Chloride 0.9% [Saline Flush] 10 ml FLUSH ASDIRECTED PRN ED Antiemetic Medication Reflex [OM.PC] Stat Peripheral IV Insertion Adult [OM.PC] Stat 09/15/17 22:11 Abdomen Pelvis w Cont [CT] Stat 09/15/17 23:34 Sodium Chloride 0.9% [Saline Flush] 10 ml FLUSH ONETIME PRN
--- NOTE | 2017-09-15 22:06 | US ---
Pelvic ultrasound: Multiple real-time images were obtained transvaginally. Comparison: No prior pelvic ultrasound is available. Findings: Uterus is anteverted. No myometrial abnormality is seen. Endometrial thickness is normal at 4.2 mm. Follicles are identified within both ovaries. Dominant follicle measures 1.6 cm within the right ovary. No larger cyst or solid abnormality is appreciated. No free fluid is seen. Measurements: Uterus: Length 9.6 cm, AP height 4.4 cm, transverse width is 5.5 cm Right ovary: 2.9 x 2.5 x 1.9 cm Left ovary: 3.1 x 1.7 x 2.1 cm. Impression: 1. No abnormality is identified on pelvic ultrasound exam. Diagnostic code #1
[2017-09-15] MEDS ORDERED: Metoclopramide 10 MG/2 ML SDV IVPUSH ONE (22:17)
[2017-09-15] MEDS ORDERED: Diatrizoate Meglumine/Diatrizoate Sodium 37% 120 ML Bottle PO ONE (23:34)
[2017-09-15] MEDS ORDERED: Iopamidol 612 MG/ML 150 ML Bottle IVPUSH ONE (23:34)
--- NOTE | 2017-09-16 18:35 | CT ---
CT abdomen and pelvis Technique: Multiple axial sections were obtained from above the dome of the diaphragm inferiorly through the pubic symphysis. Intravenous and oral contrast was utilized. Delayed images were also obtained through the bladder. Comparison: Previous CT abdomen and pelvis exam of 02/01/17. Findings: Visualized lung bases show nothing acute. Liver shows no focal parenchymal abnormality. Spleen appears within normal limits. Several accessory splenic lobules are seen anterior to the spleen. Adrenal glands show no nodule. Pancreas is within normal limits. Gallbladder contains no calcified gallstones. Aorta shows no aneurysmal dilatation. Kidneys show symmetric contrast enhancement without hydronephrosis or mass. Renal calculus is seen within the left renal pelvis measuring 7.4 mm in size. This does not appear to be causing any obstruction at this time although is in good location to cause intermittent obstruction. This calcification was seen within the lower pole on previous CT exam. No retroperitoneal adenopathy or mesenteric abnormalities are seen. No pelvic mass or adenopathy is seen. Small follicles are seen within both ovaries which are normal. No free fluid or inflammatory change is seen. Appendix appears within normal limits. No bowel dilatation is seen. No free fluid or inflammatory change is seen within the abdomen or pelvis. Bone window settings were reviewed which appear within normal limits for the patient's age. Delayed images show contrast within the distal ureters and within the bladder. Impression: 1. 7.4 mm left renal stone located within the left renal pelvis. This causes no obstruction at this time but is in good location to cause intermittent obstruction. Stone is located within the lower pole of the left kidney on prior exam. 2. Nothing acute is otherwise is seen on CT study of the abdomen and pelvis. Diagnostic code #3 Agree with preliminary report issued by [facility] ([facility] preliminary report dictated on 09/16/17, 1:30 AM Central Time)
== END 2017-09-16 01:43 | disposition left against medical advice (07) ==
LOC: JD.ED 19:59
DX: R10.32 Left lower quadrant pain (principal); R10.2 Pelvic and perineal pain; F41.9 Anxiety disorder, unspecified; F32.9 Major depressive disorder, single episode, unspecified; E66.9 Obesity, unspecified; F17.210 Nicotine dependence, cigarettes, uncomplicated; Z87.442 Personal history of urinary calculi; Z68.32 Body mass index [BMI] 32.0-32.9, adult
CPT/HCPCS: 36415; 74177; 76830; 80053; 81001; 83690; 84703; 85025; 96361; 96374; 96375; 96376; 99284; J1170; J2405; J2765; J7040; J7050; Q9963; Q9967

== ENCOUNTER 2017-10-08 14:28 | Emergency (ER) | payer MEDICAID ==
[2017-10-08 14:39] VITALS: BP 135/78
--- NOTE | 2017-10-08 14:40 | EDM.PDOC ---
ED HPI GENERAL MEDICAL PROBLEM - General Chief Complaint: General Stated Complaint: CHEST PAIN POST KIDNEY SURGERY Time Seen by Provider: 10/08/17 14:39 Source of Information: Reports: Patient History Limitations: Reports: No Limitations - History of Present Illness INITIAL COMMENTS - FREE TEXT/NARRATIVE: Patient is a 27 y/o female who presents to the E.D. complaining of anterior chest discomfort, back pain, and generalized abdominal discomfort. Patient recently had a lithotripsy with stent placement to the left kidney performed on by urologist at [facility]. There is no complications. She was discharged home on oxycodone, tramadol, Flomax, and a antibiotic of unknown name. States the pain to the back has been constant, waxes and wanes in intensity, worsened with urination. She has been taking the narcotic pain medications as prescribed with little improvements. States she's been up for only one hour today sleeping most of the time. She's been eating and drinking with no issues. Of note upon awakening this morning and has some blood from her vagina/urethra described as dark red and with an odor. She has no history of STDs and/or other abnormal vaginal discharge. She is unclear where the blood came from. She denies being she's had a tubal ligation. She developed chest discomfort today described as sharp and pressure like sensation. Pain does come and go with worsening symptoms with palpation and taking deep breath. She has no fever, cough, shortness of breath, nausea/vomiting, fever, or any additional complaints. Patients LMP was 2 wks ago. Chest Pain Score (Numeric/FACES): 6 - Related Data Allergies Allergy/AdvReac Type Severity Reaction Status Date / Time No Known Allergies Allergy Verified 09/15/17 20:08 Home Meds: Home Meds Venlafaxine [Effexor XR] 225 mg PO DAILY 07/11/16 [History] Ciprofloxacin HCl [Cipro] 500 mg PO BID 10/08/17 [History] Ondansetron [Zofran ODT] 4 mg PO Q6H PRN #15 tab.dis 10/08/17 [Rx] Tamsulosin [Flomax] 0.4 mg PO DAILY 10/08/17 [History] oxyCODONE HCl/Acetaminophen [Percocet 5-325 mg Tablet] 5 - 325 mg PO Q6H PRN [History] Past Medical History HEENT History: Reports: Impaired Vision Other HEENT History: Wears glasses Cardiovascular History: Reports: Other (See Below) Other Cardiovascular History: Mitral valve prolapse Genitourinary History: Reports: Renal Calculus 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: Musculoskeletal History: Reports: Other (See Below) Other Musculoskeletal History: Sciatica Psychiatric History: Reports: Anxiety, Depression, Eating Disorders 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 Endocrine/Metabolic History: Reports: Obesity/BMI 30+ - Past Surgical History HEENT Surgical History: Reports: Oral Surgery, Tonsillectomy Female Surgical History: Reports: Tubal Ligation, Other (See Below) Social & Family History - Family History Family Medical History: Noncontributory - Tobacco Use Smoking Status *Q: Current Every Day Smoker Years of Tobacco use: 12 Packs/Tins Daily: 1 Used Tobacco, but Quit: No Second Hand Smoke Exposure: No - Caffeine Use Caffeine Use: Reports: Coffee, Tea - Recreational Drug Use Recreational Drug Use: No Drug Use in Last 12 Months: Yes Recreational Drug Type: Reports: Cocaine, Methamphetamine Recreational Drug Use Frequency: Not Used In Over 6 Months - Living Situation & Occupation Living situation: Reports: (), with Family (2 kids) Occupation: Employed ([employer]) ED ROS GENERAL - Review of Systems Review Of Systems: ROS reveals no pertinent complaints other than HPI. ED EXAM, GENERAL - Physical Exam Exam: See Below Exam Limited By: No Limitations General Appearance: Alert, WD/WN, No Apparent Distress Ears: Hearing Grossly Normal Nose: Normal Inspection Throat/Mouth: Normal Voice, No Airway Compromise Neck: Normal Inspection, Supple Respiratory/Chest: No Respiratory Distress, Lungs Clear, Normal Breath Sounds, No Accessory Muscle Use, Chest Non-Tender Cardiovascular: Normal Peripheral Pulses, Regular Rate, Rhythm, No Murmur Peripheral Pulses: 4+: Radial (L), Radial (R) GI/Abdominal: Normal Bowel Sounds, Soft, No Organomegaly, No Distention, Tender (generalized, mild in nature) Extremities: Normal Inspection Neurological: Alert, Oriented, CN II-XII Intact, Normal Cognition, No Motor/ Sensory Deficits Psychiatric: Normal Affect, Normal Mood Skin Exam: Warm, Dry, Intact, Normal Color Course - Vital Signs Last Recorded V/S: Last Vital Signs Temp 98.6 F 10/08/17 14:38 Pulse 95 10/08/17 14:38 Resp 20 10/08/17 14:38 BP 135/78 10/08/17 14:38 Pulse Ox 99 10/08/17 14:38 - Orders/Labs/Meds Orders: Active Orders 24 hr Category Date Time Status EKG Documentation Completion [RC] STAT Care 10/08/17 14:49 Active CXR [Chest 1V Frontal] [CR] Stat Exams 10/08/17 14:50 Taken KUB [Abdomen 1V Flat] [CR] Stat Exams 10/08/17 15:02 Taken CULTURE URINE [RM] Stat Lab 10/08/17 15:20 Received DRUG SCREEN, URINE [URCHEM] Stat Lab 10/08/17 15:20 Ordered Labs: Laboratory Tests 10/08/17 10/08/17 10/08/17 Range/Units 15:03 15:03 15:03 WBC 9.82 (3.98-10.04) K/mm3 RBC 4.77 (3.98-5.22) M/mm3 Hgb 14.5 (11.2-15.7) gm/L Hct 41.8 (34.1-44.9) % MCV 87.6 (79.4-94.8) fl MCH 30.4 (25.6-32.2) pg MCHC 34.7 (32.2-35.5) g/dl RDW Std Deviation 38.9 (36.4-46.3) fL Plt Count 236 (182-369) K/mm3 MPV 9.2 L (9.4-12.3) fl Neutrophils % (Manual) 67 H (40-60) % Band Neutrophils % 0 (0-10) % Lymphocytes % (Manual) 26 (20-40) % Atypical Lymphs % 0 % Monocytes % (Manual) 5 (2-10) % Eosinophils % (Manual) 2 (0.7-5.8) % Basophils % (Manual) 0 L (0.1-1.2) Platelet Estimate Adequate Plt Morphology Comment Normal RBC Morph Comment Normal PT (9.5-12.1) SECONDS INR APTT (24-31) SECONDS D-Dimer, Quantitative 0.41 (0.19-0.50) mg/L Sodium 138 (136-145) mEq/L Potassium 3.5 (3.5-5.1) mEq/L Chloride 104 (98-107) mEq/L Carbon Dioxide 23 (21-32) mEq/L Anion Gap 14.5 (5-15) BUN 13 (7-18) mg/dL Creatinine 1.0 (0.55-1.02) mg/dL Est Cr Clr Drug Dosing 70.52 mL/min Estimated GFR (MDRD) > 60 (>60) mL/min BUN/Creatinine Ratio 13.0 L (14-18) Glucose 116 H (74-106) mg/dL Calcium 9.5 (8.5-10.1) mg/dL Total Bilirubin 0.5 (0.2-1.0) mg/dL AST 18 (15-37) U/L ALT 23 (14-59) U/L Alkaline Phosphatase 73 (46-116) U/L C-Reactive Protein 0.7 (<1.0) mg/dL Total Protein 7.2 (6.4-8.2) g/dl Albumin 3.9 (3.4-5.0) g/dl Globulin 3.3 gm/dL Albumin/Globulin Ratio 1.2 (1-2) Urine Color (Yellow) Urine Appearance (Clear) Urine pH (5.0-8.0) Ur Specific [place] (1.005-1.030) Urine Protein (Negative) Urine Glucose (UA) (Negative) Urine Ketones (Negative) Urine Occult Blood (Negative) Urine Nitrite (Negative) Urine Bilirubin (Negative) Urine Urobilinogen (0.2-1.0) Ur Leukocyte Esterase (Negative) Urine RBC (0-5) /hpf Urine WBC (0-5) /hpf Ur Epithelial Cells (0-5) /hpf Urine Bacteria (FEW) /hpf Urine Mucus (FEW) /hpf Urine Opiates Screen (NEGATIVE) Ur Buprenorphine Scrn (NEGATIVE) Ur Oxycodone Screen (NEGATIVE) Urine Methadone Screen (NEGATIVE) Ur Propoxyphene Screen (NEGATIVE) Ur Barbiturates Screen (NEGATIVE) Ur Tricyclics Screen (NEGATIVE) Ur Phencyclidine Scrn (NEGATIVE) Ur Amphetamine Screen (NEGATIVE) U Methamphetamines Scrn (NEGATIVE) U Benzodiazepines Scrn (NEGATIVE) U Cocaine Metab Screen (NEGATIVE) U Marijuana (THC) Screen (NEGATIVE) 10/08/17 10/08/17 10/08/17 Range/Units 15:03 15:20 15:20 WBC (3.98-10.04) K/mm3 RBC (3.98-5.22) M/mm3 Hgb (11.2-15.7) gm/L Hct (34.1-44.9) % MCV (79.4-94.8) fl MCH (25.6-32.2) pg MCHC (32.2-35.5) g/dl RDW Std Deviation (36.4-46.3) fL Plt Count (182-369) K/mm3 MPV (9.4-12.3) fl Neutrophils % (Manual) (40-60) % Band Neutrophils % (0-10) % Lymphocytes % (Manual) (20-40) % Atypical Lymphs % % Monocytes % (Manual) (2-10) % Eosinophils % (Manual) (0.7-5.8) % Basophils % (Manual) (0.1-1.2) Platelet Estimate Plt Morphology Comment RBC Morph Comment PT 10.9 (9.5-12.1) SECONDS INR 1.00 APTT 28 (24-31) SECONDS D-Dimer, Quantitative (0.19-0.50) mg/L Sodium (136-145) mEq/L Potassium (3.5-5.1) mEq/L Chloride (98-107) mEq/L Carbon Dioxide (21-32) mEq/L Anion Gap (5-15) BUN (7-18) mg/dL Creatinine (0.55-1.02) mg/dL Est Cr Clr Drug Dosing mL/min Estimated GFR (MDRD) (>60) mL/min BUN/Creatinine Ratio (14-18) Glucose (74-106) mg/dL Calcium (8.5-10.1) mg/dL Total Bilirubin (0.2-1.0) mg/dL AST (15-37) U/L ALT (14-59) U/L Alkaline Phosphatase (46-116) U/L C-Reactive Protein (<1.0) mg/dL Total Protein (6.4-8.2) g/dl Albumin (3.4-5.0) g/dl Globulin gm/dL Albumin/Globulin Ratio (1-2) Urine Color [place] H (Yellow) Urine Appearance Cloudy H (Clear) Urine pH 7.0 (5.0-8.0) Ur Specific [place] 1.025 (1.005-1.030) Urine Protein 2+ H (Negative) Urine Glucose (UA) Negative (Negative) Urine Ketones Trace H (Negative) Urine Occult Blood 3+ H (Negative) Urine Nitrite Negative (Negative) Urine Bilirubin 1+ H (Negative) Urine Urobilinogen 0.2 (0.2-1.0) Ur Leukocyte Esterase 1+ H (Negative) Urine RBC >100 H (0-5) /hpf Urine WBC 30-40 H (0-5) /hpf Ur Epithelial Cells 10-20 H (0-5) /hpf Urine Bacteria Moderate H (FEW) /hpf Urine Mucus Not seen (FEW) /hpf Urine Opiates Screen Negative (NEGATIVE) Ur Buprenorphine Scrn Negative (NEGATIVE) Ur Oxycodone Screen Negative (NEGATIVE) Urine Methadone Screen Negative (NEGATIVE) Ur Propoxyphene Screen Negative (NEGATIVE) Ur Barbiturates Screen Negative (NEGATIVE) Ur Tricyclics Screen Negative (NEGATIVE) Ur Phencyclidine Scrn Negative (NEGATIVE) Ur Amphetamine Screen Negative (NEGATIVE) U Methamphetamines Scrn Negative (NEGATIVE) U Benzodiazepines Scrn Negative (NEGATIVE) U Cocaine Metab Screen Negative (NEGATIVE) U Marijuana (THC) Screen Presumptive positive H (NEGATIVE) Meds: Medications Discontinued Medications Generic Name Dose Route Start Last Admin Trade Name Dwayne PRN Reason Stop Dose Admin Hydromorphone HCl 1 mg 10/08/17 15:01 10/08/17 15:31 Dilaudid IM 10/08/17 15:02 Not Given ONETIME ONE Hydromorphone HCl 1 mg 10/08/17 15:09 10/08/17 15:21 Dilaudid IVPUSH 10/08/17 15:10 1 mg ONETIME ONE Administration - Re-Assessments/Exams Free Text/Narrative Re-Assessment/Exam: Reviewed patients last E.D. visit. She left with IV in place. Per nursing staff she would not return to the E.D. to have removed. Ordered Dilaudid 1 mg IM. Labs include: CBC, chem 14, CRP, d-dimer, drug screen, KUB, ptt/inr, ptt, chest x-ray, and EKG. 10/08/17 15:21 CXR did nto reveal any concerning findings. X-ray of the abdomen reviewed ureter stent in proper location. Non specific air and stool patterns. Reviewed with Dr. Yadav. Sinus rhythm and rate [address] changes noted. Labs reviewed: CBC and chemistry panel were essentially normal. D-dimer 0.41. Urine drug tox positive for marijuana. Patient was prescribed oxycodone 5-325 # 30 10/05/2017 and another #30 09/28/2017. Patient states she has been taking tramadol for pain. The oxycodones cause her to get nauseated. Last tramadol prescription was writtent 03/25/2018. UA still pending. She is on Cipro thus she does have a UTI this be the medication of choice. I will call with results if positive. She is feeling much better after the above therapies. Discharge instructions as documented. No narcotics prescribed. She UA is grossly positive for blood. 2+ protein, ketones trace, bilirubin 1+, negative nitrates, leukocyte Estrace is positive, rbc's greater than 100, urine wbc's 30-40, urine epithelial cells 10-20, moderate bacteria. I have ordered a urine culture. Patient is on Cipro already. Departure - Departure Time of Disposition: 17:07 Disposition: Home, Self-Care 01 Condition: Good Clinical Impression: Status post laser lithotripsy of ureteral calculus Abdominal pain Qualifiers: Abdominal location: left lower quadrant Qualified Code(s): R10.32 - Left lower quadrant pain Hematuria Qualifiers: Hematuria type: unspecified type Qualified Code(s): R31.9 - Hematuria, unspecified - Discharge Information Prescriptions: Ondansetron [Zofran ODT] 4 mg PO Q6H PRN #15 tab.dis PRN Reason: Nausea/Vomiting Instructions: Abdominal Pain, Adult, [id number], Hematuria, Adult Referrals: Miranda Pacheco [Primary Care Provider] - Forms: ED Department Discharge, ED Return to Work/School Form Additional Instructions: Continue taking all your pain medications as prescribed. Take Zofran 4 mg ODT 1 tab every 6 hours as needed for nausea vomiting. Continue to push the fluids. Take the Cipro as prescribed. He will be notified if any significant findings noted on UA. Follow-up with urologist as needed for any new or worsening symptoms. Return back to the ED if you develop any new or worsening symptoms as well. No driving since receiving a sedative medication while in the ED. Do not drive while taking narcotic pain meds. - My Orders Last 24 Hours: My Active Orders 10/08/17 14:49 EKG Documentation Completion [RC] STAT 10/08/17 14:50 CXR [Chest 1V Frontal] [CR] Stat 10/08/17 15:02 KUB [Abdomen 1V Flat] [CR] Stat 10/08/17 15:20 CULTURE URINE [RM] Stat DRUG SCREEN, URINE [URCHEM] Stat - Assessment/Plan Last 24 Hours: My Active Orders 10/08/17 14:49 EKG Documentation Completion [RC] STAT 10/08/17 14:50 CXR [Chest 1V Frontal] [CR] Stat 10/08/17 15:02 KUB [Abdomen 1V Flat] [CR] Stat 10/08/17 15:20 CULTURE URINE [RM] Stat DRUG SCREEN, URINE [URCHEM] Stat
[2017-10-08] MEDS ORDERED: HYDROmorphone 1 MG/ML Syringe IM ONE (15:01)
[2017-10-08] MEDS ORDERED: HYDROmorphone 0.5 MG/0.5 ML SYRINGE IVPUSH ONE (15:09)
--- NOTE | 2017-10-09 07:36 | CR ---
Chest: Frontal view of the chest was obtained. Comparison: Prior chest x-ray of 06/28/17. Heart size and mediastinum are normal. Lungs are clear. Bony structures appear intact. Impression: 1. Nothing acute is identified on frontal chest x-ray. Diagnostic code #1
--- NOTE | 2017-10-09 07:36 | CR ---
Abdomen: Supine view of the abdomen was obtained. Comparison: Prior abdominal x-ray of 03/25/17. Calcification is noted within the lower pole of the left kidney compatible with renal stone measuring about 9 mm. Left ureteral stent is seen with proximal end lying within the expected area of the renal pelvis and distal end within the expected region of the bladder. No other abnormal calcifications are seen. Bowel gas pattern is normal. Bony structures are unremarkable. Impression: 1. Calcification within the lower left kidney. 2. Left ureteral stent. Diagnostic code #3
== END 2017-10-08 17:20 | disposition home or self-care (01) ==
LOC: JD.ED 14:28
DX: R10.32 Left lower quadrant pain (principal); R31.9 Hematuria, unspecified; F17.210 Nicotine dependence, cigarettes, uncomplicated; Z79.899 Other long term (current) drug therapy; Z98.890 Other specified postprocedural states; Z87.442 Personal history of urinary calculi
CPT/HCPCS: 36415; 71045; 74018; 80053; 80306; 81001; 85025; 85379; 85610; 85730; 86140; 87086; 93005; 96372; 99285; J1170

== ENCOUNTER 2017-12-11 17:13 | Emergency (ER) | payer MEDICAID ==
--- NOTE | 2017-12-11 17:58 | EDM.PDOCBH ---
ED HPI GENERAL MEDICAL PROBLEM - General Chief Complaint: Drug or Alcohol Abuse Stated Complaint: [facility] Time Seen by Provider: 12/11/17 17:30 Source of Information: Reports: Patient History Limitations: Reports: No Limitations - History of Present Illness INITIAL COMMENTS - FREE TEXT/NARRATIVE: Patient is a 27-year-old female who overdosed on tramadol 50 mg 4 pills, hydroxyzine 25 mgx 6 pills earlier this afternoon. She was trying to kill herself. She is under a lot more stress recently with family situation, finances , and kids hating her. Patient states this last July she from her . Has been unable to get a divorce since she can't afford it. Kids live with her at this point and hate her. The is not in their life anymore. Patient has also inherited debt from her and is financially strapped. She's been thinking about committing suicide for a while. She states in the past strangled herself when she was 18 requiring hospitalization. She has a history of bipolar, anxiety, depression, and ADHD. Approx, 3 weeks ago she was started on new psych medications to which she's been taking regularly. She denies any hallucinations or homicidal ideations. Patient does smoke a half pack per day. Alcohol use none. She uses recreational drugs. She denies being she's had a tubal ligation. - Related Data Allergies Allergy/AdvReac Type Severity Reaction Status Date / Time No Known Allergies Allergy Verified 12/11/17 17:24 Home Meds: Home Meds Venlafaxine [Effexor XR] 225 mg PO DAILY 07/11/16 [History] Ciprofloxacin HCl [Cipro] 500 mg PO BID 10/08/17 [History] Ondansetron [Zofran ODT] 4 mg PO Q6H PRN #15 tab.dis 10/08/17 [Rx] Tamsulosin [Flomax] 0.4 mg PO DAILY 10/08/17 [History] oxyCODONE HCl/Acetaminophen [Percocet 5-325 mg Tablet] 5 - 325 mg PO Q6H PRN [History] Past Medical History HEENT History: Reports: Impaired Vision Other HEENT History: Wears glasses Cardiovascular History: Reports: Other (See Below) Other Cardiovascular History: Mitral valve prolapse Genitourinary History: Reports: Renal Calculus Other Genitourinary History: states had a 7mm stone and had lithotrispy and stent place 4-19 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: Musculoskeletal History: Reports: Other (See Below) Other Musculoskeletal History: Sciatica Psychiatric History: Reports: Anxiety, Depression, Eating Disorders 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 Endocrine/Metabolic History: Reports: Obesity/BMI 30+ - Past Surgical History HEENT Surgical History: Reports: Oral Surgery, Tonsillectomy Female Surgical History: Reports: Tubal Ligation, Other (See Below) Social & Family History - Family History Family Medical History: Noncontributory - Tobacco Use Smoking Status *Q: Current Every Day Smoker Years of Tobacco use: 10 Packs/Tins Daily: 0.5 - Caffeine Use Caffeine Use: Reports: Coffee - Recreational Drug Use Recreational Drug Use: Yes Drug Use in Last 12 Months: Yes Recreational Drug Type: Reports: Cocaine, Heroin, Marijuana/Hashish, Methamphetamine Recreational Drug Use Frequency: Not Used In Over 6 Months - Living Situation & Occupation Living situation: Reports: (), with Family (2 kids) Occupation: Employed ([employer]) ED ROS GENERAL - Review of Systems Review Of Systems: ROS reveals no pertinent complaints other than HPI. ED EXAM, BEHAVIORAL HEALTH - Physical Exam Exam: See Below Exam Limited By: No Limitations General Appearance: Alert, WD/WN, No Apparent Distress Eye Exam: Bilateral Eye: Normal Inspection Ears: Hearing Grossly Normal Nose: Normal Inspection Throat/Mouth: Normal Inspection, Normal Voice, No Airway Compromise Head: Atraumatic, Normocephalic Neck: Normal Inspection, Supple Respiratory/Chest: No Respiratory Distress, Lungs Clear, Normal Breath Sounds, No Accessory Muscle Use Cardiovascular: Normal Peripheral Pulses, Regular Rate, Rhythm, No Murmur GI/Abdominal: Normal Bowel Sounds, Soft, Non-Tender, No Organomegaly, No Distention Back Exam: Normal Inspection Extremities: Normal Inspection Neurological: Alert, Normal Mood/Affect, CN II-XII Intact, Normal Cognition, No Motor/Sensory Deficits, Oriented x 3 Psychiatric: Alert, Normal Affect, Normal Cognition, Normal Mood, Oriented, Depressed Mood, Tearful, Suicidal Plan, Suicidal Thoughts. No: Flat Affect, Incoherent, Restless, Agitated, Disoriented, Inattentive, Non-Communicative, Poor Eye Contact, Uncooperative, Withdrawn, Flight of Ideas, Homicidal Thoughts , Jewish Delusions, Auditory Hallucinations, Visual Hallucinations, Grandiose Thoughts, Pressured Speech, Paranoid Thoughts, Threatening Behavior Skin Exam: Warm, Dry, Intact, Normal color COURSE, BEHAVIORAL HEALTH COMP - Course Vital Signs: Last Vital Signs Temp 97.8 F 12/11/17 21:50 Pulse 83 12/11/17 20:46 Resp 19 12/11/17 21:50 BP 133/77 12/11/17 21:50 Pulse Ox 98 12/11/17 21:50 Orders, Labs, Meds: Laboratory Tests 12/11/17 12/11/17 12/11/17 Range/Units 17:26 17:52 17:52 WBC (3.98-10.04) K/mm3 RBC (3.98-5.22) M/mm3 Hgb (11.2-15.7) gm/L Hct (34.1-44.9) % MCV (79.4-94.8) fl MCH (25.6-32.2) pg MCHC (32.2-35.5) g/dl RDW Std Deviation (36.4-46.3) fL Plt Count (182-369) K/mm3 MPV (9.4-12.3) fl Neutrophils % (Manual) (40-60) % Band Neutrophils % (0-10) % Lymphocytes % (Manual) (20-40) % Atypical Lymphs % % Monocytes % (Manual) (2-10) % Eosinophils % (Manual) (0.7-5.8) % Basophils % (Manual) (0.1-1.2) Platelet Estimate Plt Morphology Comment RBC Morph Comment Sodium (136-145) mEq/L Potassium (3.5-5.1) mEq/L Chloride (98-107) mEq/L Carbon Dioxide (21-32) mEq/L Anion Gap (5-15) BUN (7-18) mg/dL Creatinine (0.55-1.02) mg/dL Est Cr Clr Drug Dosing mL/min Estimated GFR (MDRD) (>60) mL/min BUN/Creatinine Ratio (14-18) Glucose (74-106) mg/dL Calcium (8.5-10.1) mg/dL Total Bilirubin (0.2-1.0) mg/dL AST (15-37) U/L ALT (14-59) U/L Alkaline Phosphatase (46-116) U/L Total Protein (6.4-8.2) g/dl Albumin (3.4-5.0) g/dl Globulin gm/dL Albumin/Globulin Ratio (1-2) TSH 3rd Generation (0.358-3.74) uIU/mL Urine Color Yellow (Yellow) Urine Appearance Clear (Clear) Urine pH 7.0 (5.0-8.0) Ur Specific [place] 1.015 (1.005-1.030) Urine Protein Negative (Negative) Urine Glucose (UA) Negative (Negative) Urine Ketones Negative (Negative) Urine Occult Blood Negative (Negative) Urine Nitrite Negative (Negative) Urine Bilirubin Negative (Negative) Urine Urobilinogen 0.2 (0.2-1.0) Ur Leukocyte Esterase Trace H (Negative) Urine RBC 0-5 (0-5) /hpf Urine WBC 0-5 (0-5) /hpf Ur Epithelial Cells 0-5 (0-5) /hpf Urine Bacteria Few (FEW) /hpf Urine Mucus Few (FEW) /hpf Urine Other See note Urine HCG, Qual Negative (NEGATIVE) Salicylates (2.8-20) mg/dL Urine Opiates Screen Negative (NEGATIVE) Ur Buprenorphine Scrn Negative (NEGATIVE) Ur Oxycodone Screen Negative (NEGATIVE) Urine Methadone Screen Negative (NEGATIVE) Ur Propoxyphene Screen Negative (NEGATIVE) Acetaminophen (10-30) ug/mL Ur Barbiturates Screen Negative (NEGATIVE) Ur Tricyclics Screen Negative (NEGATIVE) Ur Phencyclidine Scrn Negative (NEGATIVE) Ur Amphetamine Screen Presumptive positive H (NEGATIVE) U Methamphetamines Scrn Negative (NEGATIVE) U Benzodiazepines Scrn Negative (NEGATIVE) U Cocaine Metab Screen Negative (NEGATIVE) U Marijuana (THC) Screen Negative (NEGATIVE) Ethyl Alcohol (0.00) gm% 12/11/17 12/11/17 12/11/17 Range/Units 18:15 18:15 18:15 WBC 10.21 H (3.98-10.04) K/mm3 RBC 4.56 (3.98-5.22) M/mm3 Hgb 13.8 (11.2-15.7) gm/L Hct 40.4 (34.1-44.9) % MCV 88.6 (79.4-94.8) fl MCH 30.3 (25.6-32.2) pg MCHC 34.2 (32.2-35.5) g/dl RDW Std Deviation 39.6 (36.4-46.3) fL Plt Count 264 (182-369) K/mm3 MPV 9.8 (9.4-12.3) fl Neutrophils % (Manual) 75 H (40-60) % Band Neutrophils % 0 (0-10) % Lymphocytes % (Manual) 20 (20-40) % Atypical Lymphs % 0 % Monocytes % (Manual) 3 (2-10) % Eosinophils % (Manual) 2 (0.7-5.8) % Basophils % (Manual) 0 L (0.1-1.2) Platelet Estimate Adequate Plt Morphology Comment Normal RBC Morph Comment Normal Sodium 127 L (136-145) mEq/L Potassium 3.4 L (3.5-5.1) mEq/L Chloride 103 (98-107) mEq/L Carbon Dioxide 22 (21-32) mEq/L Anion Gap 5.4 (5-15) BUN 12 (7-18) mg/dL Creatinine 1.0 (0.55-1.02) mg/dL Est Cr Clr Drug Dosing 70.52 mL/min Estimated GFR (MDRD) > 60 (>60) mL/min BUN/Creatinine Ratio 12.0 L (14-18) Glucose 90 (74-106) mg/dL Calcium 8.7 (8.5-10.1) mg/dL Total Bilirubin 0.2 (0.2-1.0) mg/dL AST 15 (15-37) U/L ALT 24 (14-59) U/L Alkaline Phosphatase 77 (46-116) U/L Total Protein 7.1 (6.4-8.2) g/dl Albumin 4.0 (3.4-5.0) g/dl Globulin 3.1 gm/dL Albumin/Globulin Ratio 1.3 (1-2) TSH 3rd Generation 0.903 (0.358-3.74) uIU/mL Urine Color (Yellow) Urine Appearance (Clear) Urine pH (5.0-8.0) Ur Specific [place] (1.005-1.030) Urine Protein (Negative) Urine Glucose (UA) (Negative) Urine Ketones (Negative) Urine Occult Blood (Negative) Urine Nitrite (Negative) Urine Bilirubin (Negative) Urine Urobilinogen (0.2-1.0) Ur Leukocyte Esterase (Negative) Urine RBC (0-5) /hpf Urine WBC (0-5) /hpf Ur Epithelial Cells (0-5) /hpf Urine Bacteria (FEW) /hpf Urine Mucus (FEW) /hpf Urine Other Urine HCG, Qual (NEGATIVE) Salicylates 3.5 (2.8-20) mg/dL Urine Opiates Screen (NEGATIVE) Ur Buprenorphine Scrn (NEGATIVE) Ur Oxycodone Screen (NEGATIVE) Urine Methadone Screen (NEGATIVE) Ur Propoxyphene Screen (NEGATIVE) Acetaminophen 0 L (10-30) ug/mL Ur Barbiturates Screen (NEGATIVE) Ur Tricyclics Screen (NEGATIVE) Ur Phencyclidine Scrn (NEGATIVE) Ur Amphetamine Screen (NEGATIVE) U Methamphetamines Scrn (NEGATIVE) U Benzodiazepines Scrn (NEGATIVE) U Cocaine Metab Screen (NEGATIVE) U Marijuana (THC) Screen (NEGATIVE) Ethyl Alcohol 0.00 (0.00) gm% Re-Assessment/Re-Exam: IV established by EMS. Patient was administered 3 doses of Narcan by PD. With no significant effects. Currently patient's a little bit drowsy but she is alert and oriented 3. Vital signs are stable. Initial labs and studies include CBC, chem 14, UA, hCG, EKG, TSH, serum EtOH, urine drug tox, acetaminophen, salicylate. Will be looking for placement as well. Labs reviewed: Labs reviewed: CBC essentially normal. Sodium 127 and potassium 3.4. TSH normal. UA trace leukocyte Estrace. HCG negative. Urine drug tox positive for amphetamines. Serum EtOH 0. [address] Skinner on psych provider. He has accepted the patient. Requested 24-hour hold be completed and faxed to [facility] for review. They will call back when reviewed. yield clerk to contact [facility]'s Department. They will not be able to transport the patient this evening. Unsure if the patient would be transported tomorrow. Mother is present and has offered to transport the patient. Patient states this would be okay. She does not feel suicidal at this this point. Continues to be remorseful. I do not feel comfortable in allowing family to transport patient that has already attempted to kill herself. In fear patient may jump out of a moving vehicle while to [place] or in some way attempt to kill herself and cause harm to mother and other motorists. 2019 I have contacted [facility] to transport patient. They have refused since no deputy would be available to come with. 2051 Nursing staff contacted [facility] and they will not take the patient if not transported via ambulance and or police. 2053 Nursing staff will attempt transport with [facility] and or [facility]. Per kitchen stewardess [facility] states all 24 hr hold paperwork has been completed appropriately. Per nursing staff [facility] will be transporting the patient. Transfers orders placed. Departure - Departure Time of Disposition: 19:20 Disposition: DC/Tfer to Psych Hosp/Unit 65 Condition: Good Clinical Impression: Hyponatremia, Hypokalemia Suicidal overdose Qualifiers: Encounter type: initial encounter Qualified Code(s): T50.902A - Poisoning by unspecified drugs, medicaments and biological substances, intentional self-harm , initial encounter Depression Qualifiers: Depression Type: unspecified Qualified Code(s): F32.9 - Major depressive disorder, single episode, unspecified - Discharge Information
[2017-12-11 19:11] LABS: ACETAMINOPHEN 0 ug/mL (10-30)
[2017-12-11 21:58] VITALS: BP 133/77
== END 2017-12-11 21:50 ==
LOC: JD.ED 17:13
DX: T40.4X2A Poisoning by other synthetic narcotics, intentional self-harm, initial encounter (principal); T43.592A Poisoning by other antipsychotics and neuroleptics, intentional self-harm, initial encounter; F32.9 Major depressive disorder, single episode, unspecified; E87.1 Hypo-osmolality and hyponatremia; E87.6 Hypokalemia; F17.210 Nicotine dependence, cigarettes, uncomplicated; F41.9 Anxiety disorder, unspecified; Z79.899 Other long term (current) drug therapy
CPT/HCPCS: 36415; 80053; 80306; 81001; 81025; 84443; 85007; 85027; 93005; 99285; G0480

== ENCOUNTER 2018-06-25 16:33 | Emergency (ER) | payer SELFPAY ==
[2018-06-25 16:46] VITALS: BP 116/65
--- NOTE | 2018-06-25 17:30 | EDM.PDOC ---
ED HPI GENERAL MEDICAL PROBLEM - General Chief Complaint: Cardiovascular Problem Stated Complaint: SOB/DIZZY Time Seen by Provider: 06/25/18 16:49 Source of Information: Reports: Patient History Limitations: Reports: No Limitations - History of Present Illness INITIAL COMMENTS - FREE TEXT/NARRATIVE: Patient is a 27-year-old male presents to the ED complaining of shortness of breath at rest and also with exertion. States she has a history of mitral valve prolapse diagnosed in 2011. States symptoms started this morning and have persisted. [facility] Has been under a lot more stress recently. Notes her anxiety has increased as of recent as well. She states she is working on getting her own place. Still working through a divorce with her but due to financial issues is unable to afford. 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 She was evaluated there twice 2 weeks ago for palpitations. Started on labetalol 100 mg twice a day. She went back to the ER after having an adverse reaction to a steroid injection. States shortness of breath and palpitations did subside after a few hours with no medications. In addition she's also been taking propanolol 10 mg 3 times a day when necessary. Last took propanolol at 2: 00 today. No significant relief. She's been taking these medications when she has palpitations and shortness of breath. She has been told in the past it is related to anxiety. Prior to returning from [place] all symptoms had resolved. She currently denies any cough, fever, hemoptysis, pain or swelling to her legs , history of DVT/PE, dysuria, diarrhea, bloody stool, dark tarry stools. She has had an ablation and is currently on no control. She does smoke half pack per day. She has been eating and drinking okay. Urine has been straw- colored. She also has lower abdominal discomfort but has history of bladder sling surgery. Chest Pain Score (Numeric/FACES): 3 - Related Data Allergies Allergy/AdvReac Type Severity Reaction Status Date / Time acetaminophen [From Vicodin] AdvReac Vomiting Verified 06/25/18 16:46 hydrocodone [From Vicodin] AdvReac Vomiting Verified 06/25/18 16:46 Home Meds: Home Meds Labetalol [Normodyne] 100 mg PO BID 06/25/18 [History] Propranolol [Inderal] 10 mg PO DAILY PRN 06/25/18 [History] Past Medical History HEENT History: Reports: Impaired Vision, Other (See Below) Other HEENT History: Wears glasses hearing loss, left eustachian tube dysfunction Cardiovascular History: Reports: None Respiratory History: Reports: Asthma, Sleep Apnea Gastrointestinal History: Reports: None Genitourinary History: Reports: Renal Calculus Other Genitourinary History: states had a 7mm stone and had lithotrispy and stent place 10-05, 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: Musculoskeletal History: Reports: Other (See Below) Other Musculoskeletal History: Sciatica, left chrondomalacia patelle, left hip greater trochanteric bursitis and pain, low back pain Neurological History: Reports: Migraines Psychiatric History: Reports: ADHD, Anxiety, Bipolar, Depression, Eating Disorders 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 Endocrine/Metabolic History: Reports: Obesity/BMI 30+ Hematologic History: Reports: None Immunologic History: Reports: None Oncologic (Cancer) History: Reports: None Dermatologic History: Reports: None - Past Surgical History HEENT Surgical History: Reports: Oral Surgery, Tonsillectomy Other HEENT Surgeries/Procedures: [place] teeth extraction Cardiovascular Surgical History: Reports: None Respiratory Surgical History: Reports: None GI Surgical History: Reports: None Female Surgical History: Reports: Tubal Ligation, Other (See Below) Endocrine Surgical History: Reports: None Neurological Surgical History: Reports: None Musculoskeletal Surgical History: Reports: None Oncologic Surgical History: Reports: None Dermatological Surgical History: Reports: None Social & Family History - Family History Family Medical History: Noncontributory - Caffeine Use Caffeine Use: Reports: Coffee - Living Situation & Occupation Living situation: Reports: (), with Family (2 kids) Occupation: Employed ([employer]) ED ROS GENERAL - Review of Systems Review Of Systems: ROS reveals no pertinent complaints other than HPI. ED EXAM, GENERAL - Physical Exam Exam: See Below Exam Limited By: No Limitations General Appearance: Alert, WD/WN, No Apparent Distress. No: Anxious Eye Exam: Bilateral Eye: Normal Inspection Ears: Hearing Grossly Normal Nose: Normal Inspection Throat/Mouth: Normal Inspection, Normal Voice, No Airway Compromise, Other ( Oral mucosa is moist.) Head: Atraumatic, Normocephalic Neck: Normal Inspection, Supple Respiratory/Chest: No Respiratory Distress, Lungs Clear, Normal Breath Sounds, No Accessory Muscle Use, Chest Non-Tender Cardiovascular: Normal Peripheral Pulses, Regular Rate, Rhythm, No Murmur ( Obvious) Peripheral Pulses: 2+: Radial (L) GI/Abdominal: Normal Bowel Sounds, Soft, No Organomegaly, No Distention, Tender (Patient has some mild to moderate tenderness along the suprapubic region and also left lower quadrant.) Extremities: Normal Inspection, Normal Range of Motion, Non-Tender, No Pedal Edema, Normal Capillary Refill Neurological: Alert, Oriented, CN II-XII Intact, Normal Cognition, No Motor/ Sensory Deficits Psychiatric: Normal Affect, Normal Mood Skin Exam: Warm, Dry, Intact, Normal Color, No Rash Course - Vital Signs Last Recorded V/S: Last Vital Signs Temp 97.5 F 06/25/18 16:43 Pulse 77 06/25/18 16:43 Resp 16 06/25/18 16:43 BP 116/65 06/25/18 16:43 Pulse Ox 99 06/25/18 16:43 - Orders/Labs/Meds Orders: Active Orders 24 hr Category Date Time Status EKG Documentation Completion [RC] STAT Care 06/25/18 17:15 Active Abdomen Series w Chest 1V [CR] Stat Exams 06/25/18 17:20 Taken Labs: Laboratory Tests 06/25/18 06/25/18 06/25/18 Range/Units 17:30 17:30 19:03 WBC 12.11 H (3.98-10.04) K/mm3 RBC 4.78 (3.98-5.22) M/mm3 Hgb 14.8 (11.2-15.7) gm/L Hct 41.8 (34.1-44.9) % MCV 87.4 (79.4-94.8) fl MCH 31.0 (25.6-32.2) pg MCHC 35.4 (32.2-35.5) g/dl RDW Std Deviation 39.7 (36.4-46.3) fL Plt Count 252 (182-369) K/mm3 MPV 9.2 L (9.4-12.3) fl Neutrophils % (Manual) 77 H (40-60) % Band Neutrophils % 0 (0-10) % Lymphocytes % (Manual) 13 L (20-40) % Atypical Lymphs % 0 % Monocytes % (Manual) 5 (2-10) % Eosinophils % (Manual) 5 (0.7-5.8) % Basophils % (Manual) 0 L (0.1-1.2) Platelet Estimate Adequate Plt Morphology Comment Normal RBC Morph Comment Normal Sodium 140 (136-145) mEq/L Potassium 3.7 (3.5-5.1) mEq/L Chloride 107 (98-107) mEq/L Carbon Dioxide 23 (21-32) mEq/L Anion Gap 13.7 (5-15) BUN 19 H (7-18) mg/dL Creatinine 0.8 (0.55-1.02) mg/dL Est Cr Clr Drug Dosing 88.15 mL/min Estimated GFR (MDRD) > 60 (>60) mL/min BUN/Creatinine Ratio 23.8 H (14-18) Glucose 93 (74-106) mg/dL Calcium 9.1 (8.5-10.1) mg/dL Total Bilirubin 0.5 (0.2-1.0) mg/dL AST 16 (15-37) U/L ALT 30 (14-59) U/L Alkaline Phosphatase 78 (46-116) U/L Total Protein 7.4 (6.4-8.2) g/dl Albumin 4.1 (3.4-5.0) g/dl Globulin 3.3 gm/dL Albumin/Globulin Ratio 1.2 (1-2) TSH 3rd Generation 1.200 (0.358-3.74) uIU/mL Urine Color Yellow (Yellow) Urine Appearance Slt cloudy H (Clear) Urine pH 7.0 (5.0-8.0) Ur Specific [place] 1.025 (1.005-1.030) Urine Protein Trace H (Negative) Urine Glucose (UA) Negative (Negative) Urine Ketones Negative (Negative) Urine Occult Blood Trace-lysed H (Negative) Urine Nitrite Negative (Negative) Urine Bilirubin Negative (Negative) Urine Urobilinogen 0.2 (0.2-1.0) Ur Leukocyte Esterase Negative (Negative) - Re-Assessments/Exams Free Text/Narrative Re-Assessment/Exam: On examination patient is in no acute distress. Vital signs are stable. Orthostatic vital signs were negative. Patient states with standing she became mildly dizzy. Patient is currently taking labetalol 100 mg twice a day and propanolol 3 times a day when necessary. Last took propanolol at 1400 hrs. Initial labs and studies will include: CBC, chem 14, TSH, UA, chest x-ray, and EKG. EKG sinus rhythm at a rate of [address] changes noted. Poor R-wave progression noted. X-ray of the abdomen and chest revealed no acute findings. Reviewed with Dr. Lozano. Final interpretation is pending. Labs reviewed: White blood cell count 12.1, hemoglobin normal, platelet count normal, sodium potassium normal, creatinine normal, glucose normal, and TSH normal. 06/25/18 19:43 UA revealed trace protein with trace lysed occult blood. Suspect cause of current symptoms is related to taking both labetalol and propanolol together. Will have the patient take the propanolol only and discontinue labetalol. She can see her PCP for further direction for treatment. She has an appointment scheduled. Return precautions discussed with the patient. Discharge instructions as documented. Departure - Departure Time of Disposition: 19:44 Disposition: Home, Self-Care 01 Condition: Good Clinical Impression: Dizziness, nonspecific Hematuria Qualifiers: Hematuria type: unspecified type Qualified Code(s): R31.9 - Hematuria, unspecified Instructions: Dizziness, [id number] Referrals: PCP,None [Primary Care Provider] - Forms: ED Department Discharge Additional Instructions: Suspect cause of current symptoms is related to taking the labetalol and propanolol together. Stop taking the labetalol and start taking the propranolol only. Follow-up with PCP as scheduled to discuss further treatment for anxiety, depression, and palpitations. Push the fluids. Eat a balanced diet. Return back to the ED if you develop any new or worsening symptoms. - My Orders Last 24 Hours: My Active Orders 06/25/18 17:15 EKG Documentation Completion [RC] STAT 06/25/18 17:20 Abdomen Series w Chest 1V [CR] Stat - Assessment/Plan Last 24 Hours: My Active Orders 06/25/18 17:15 EKG Documentation Completion [RC] STAT 06/25/18 17:20 Abdomen Series w Chest 1V [CR] Stat
--- NOTE | 2018-06-26 06:04 | CR ---
Abdominal series: Supine and upright views of the abdomen were obtained as well as frontal view of the chest. Comparison: Prior chest and abdominal x-ray performed on 10/08/17. Findings: Heart size and mediastinum are within normal limits. Lungs are clear with no acute parenchymal change. Bowel gas pattern is normal. Small calcification is seen within the lower left kidney compatible with nonobstructing stone. No other abnormal calcifications are identified. Prior study showed a left ureteral stent which is no longer seen. Impression: 1. Nonobstructing small calculus within the lower left kidney. 2. Abdominal study and frontal chest x-ray is otherwise unremarkable. Diagnostic code #2
== END 2018-06-25 19:50 | disposition home or self-care (01) ==
LOC: JD.ED 16:33
DX: R42 Dizziness and giddiness (principal); R31.9 Hematuria, unspecified; E66.9 Obesity, unspecified; Z98.890 Other specified postprocedural states; Z98.51 Tubal ligation status; Z88.5 Allergy status to narcotic agent
CPT/HCPCS: 36415; 74022; 74022-26; 80053; 81003; 84443; 85007; 85027; 93005; 93010; 99283; 99285-25